=== PATIENT | female | born 1985 | race Caucasian/White ===

== ENCOUNTER 2018-03-07 17:08 | Emergency (ER) | payer OTHER, SELFPAY ==
[2018-03-07 18:51] LABS: Urine Blood NEGATIVE (NEG); Urine Glucose NEGATIVE (NEG); Urine Protein NEGATIVE (NEG); Urine Specific Gravity 1.025 (1.005-1.030)
[2018-03-07 18:54] LABS: Urine Bacteria <20 /HPF (<20); Urine RBC <5 /HPF (NONE SEEN)
[2018-03-07 18:55] LABS: Urine Amorphous Sediment 2+ /HPF (NONE SEEN); Urine Culture Reflex Order NOT NEEDED
--- NOTE | 2018-03-07 19:28 | ER ---
Nurse's Notes [facility] Name: Lilliana Escobedo Age: 32 yrs Sex: Female : 1985 Arrival Date: 03/07/2018 Time: 17:17 Bed 14 Private MD: None, None Diagnosis: Headache Presentation: 03/07 17:47 Presenting complaint: Patient states: unusual tiredness for the last couple of weeks, tl3 no energy, headache started three ot four days ago, behind both eyes, photophobic at times, pain so intense it makes her vomit. Transition of care: patient was not received from another setting of care. Onset of symptoms was March 03, 2018 at 15:00. Risk Assessment: Do you want to hurt yourself or someone else? Patient reports no desire to harm self or others. Initial Sepsis Screen: Does the patient meet any 2 criteria? No. Patient's initial sepsis screen is negative. Does the patient have a suspected source of infection? No. Patient's initial sepsis screen is negative. Care prior to arrival: None. 17:47 Method Of Arrival: Ambulatory tl3 17:47 Acuity: SELWYN 3 tl3 Triage Assessment: 17:50 Headache History: The patient has had previous headaches and this one is similar to tl3 previous episodes. General: Appears uncomfortable, well groomed, well developed, well nourished, Behavior is calm, cooperative, appropriate for age. Pain: Pain currently is 4 out of 10 on a pain scale. Pain: Pain began 2-3 days ago. Also complains of nausea, vomiting. Neuro: Level of Consciousness is awake, alert, obeys commands, Oriented to person, place, time, situation, Appropriate for age. 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 - Social history:: Smoking status: Patient uses tobacco products, quit about a week and a half ago. - Ebola Screening: : No symptoms or risks identified at this time. Screenin:37 Abuse screen: Denies threats or abuse. Nutritional screening: No deficits noted. em Tuberculosis screening: No symptoms or risk factors identified. Fall Risk None identified. Assessment: 18:24 General: Appears in no apparent distress. uncomfortable, Behavior is calm, cooperative, em Reports headache and nausea for 3 days, denies fever, hx of headaches. Pain: Complains of pain in head Pain currently is 4 out of 10 on a pain scale. Is intermittent. Neuro: Level of Consciousness is awake, alert, obeys commands, Oriented to person, place, time, situation, Moves all extremities. Gait is steady, Speech is normal, Facial symmetry appears normal, Reports headache photophobia weakness. Cardiovascular: Capillary refill < 3 seconds Patient's skin is warm and dry. Respiratory: Airway is patent Respiratory effort is even, unlabored, Respiratory pattern is regular, symmetrical. GI: Abdomen is round non-distended, Reports nausea, vomiting. : Urine is cloudy. EENT: No signs and/or symptoms were reported regarding the EENT system. Derm: Skin is intact, Skin is pink, warm \T\ dry. Musculoskeletal: Range of motion: intact in all extremities. 18:30 General: The previous assessment is accurate, call light remains within reach. . ss 19:10 Reassessment: Report received from ISABELLA Chambers. bs1 19:34 Reassessment: Patient appears in no apparent distress at this time. Patient and/or bs1 family updated on plan of care and expected duration. Pain level reassessed. Patient is alert, oriented x 3, equal unlabored respirations, skin warm/dry/pink. Urine micro negative. Instructed patient to follow up with PCP Patient denies pain at this time. Patient states symptoms have improved. Vital Signs: 17:50 BP 133 / 66; Pulse 73; Resp 18; Temp 98.3; Pulse Ox 98% ; Weight 122.47 kg; Height 5 tl3 ft. 10 in. (177.80 cm); 18:30 BP 133 / 73; Pulse 67; Resp 16; Pulse Ox 100% on R/A; bs1 19:30 BP 125 / 77; Pulse 69; Resp 15; Temp 98(O); Pulse Ox 99% on R/A; Pain 0/10; bs1 17:50 Body Mass Index 38.74 (122.47 kg, 177.80 cm) tl3 ED Course: 17:17 Patient arrived in ED. sb2 17:17 None, None is Private Physician. sb2 17:49 Triage completed. tl3 17:50 Arm band placed on left wrist. tl3 18:16 [facility]. pm1 18:16 Benja Zamorano MD is Attending Physician. pm1 18:17 Reyes Bass LVN is Primary Nurse. em 18:37 Patient has correct armband on for positive identification. Bed in low position. Call em light in reach. 18:37 Urine collected: clean catch specimen, cloudy. em 19:35 No provider procedures requiring assistance completed. Patient did not have IV access bs1 during this emergency room visit. Administered Medications: No medications were administered Outcome: 19:28 Discharge ordered by . pm1 19:35 Discharged to home ambulatory. bs1 19:35 Condition: stable 19:35 Discharge instructions given to patient, Instructed on discharge instructions, follow up and referral plans. Demonstrated understanding of instructions, follow-up care. 19:40 Patient left the ED. bs1 Signatures: Reyes Bass LVN LADIES UNDERWEAR OPERATOR em Roya Quiroz RN RN Jef Sarah, DELLA SENIOR CONTROLS ENGINEER pm1 Mariah Dai RN RN bs1 Cristina Kate sb2 Tamika Myers RN RN tl3
--- NOTE | 2018-03-07 19:29 | EDPHYS ---
Physician Documentation [facility] Name: Lilliana Escobedo Age: 32 yrs Sex: Female : 1985 Arrival Date: 03/07/2018 Time: 17:17 Bed 14 Private MD: None, None ED Physician Benja Zamorano HPI: 03/07 18:25 This 32 yrs old Female presents to ER via Ambulatory with complaints of pm1 Headache. 18:25 The patient complains of pain to the behind right eye and left eye. The patient pm1 describes the headache as aching, constant. Onset: The symptoms/episode began/occurred 3 day(s) ago. Associated signs and symptoms: Pertinent positives: nausea, Photophobia vomiting, Pertinent negatives: dizziness, fever, neck stiffness, rash, vision changes. Severity of symptoms: in the emergency department the pain has improved, a " 4" out of "10". Headache History: The patient has had previous headaches and this one is similar to previous episodes, and this one is less severe than previous episodes. The symptoms are alleviated by Darkened room, the symptoms are aggravated by lights, noise. The patient has experienced similar episodes in the past, multiple times. The patient has not recently seen a physician, and does not have an established primary care provider. this headache is not the worse that she has ever had. Current pain 4/10 and same presentation of location, behind both eyes, and sensitivity to noise and light. Patient typically goes into a dark room and sleeps the headache off with ibuprofen. 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 - Social history:: Smoking status: Patient uses tobacco products, quit about a week and a half ago. - Ebola Screening: : No symptoms or risks identified at this time. ROS: 18:25 Constitutional: Negative for fever, chills, and weight loss, Eyes: Negative for injury, pm1 pain, redness, and discharge, ENT: Negative for injury, pain, and discharge, Neck: Negative for injury, pain, and swelling, Cardiovascular: Negative for chest pain, palpitations, and edema, Respiratory: Negative for shortness of breath, cough, wheezing, and pleuritic chest pain, Abdomen/GI: Negative for abdominal pain, nausea, vomiting, diarrhea, and constipation, Back: Negative for injury and pain, : Negative for injury, bleeding, discharge, and swelling, MS/Extremity: Negative for injury and deformity, Skin: Negative for injury, rash, and discoloration. 18:25 Neuro: Positive for headache, Negative for dizziness, gait disturbance, numbness, tingling, weakness. Exam: 18:25 Constitutional: This is a well developed, well nourished patient who is awake, alert, pm1 and in no acute distress. Head/Face: Normocephalic, atraumatic. 18:25 Eyes: Pupils equal round and reactive to light, extra-ocular motions intact. Lids and lashes normal. Conjunctiva and sclera are non-icteric and not injected. Cornea within normal limits. Periorbital areas with no swelling, redness, or edema. ENT: Nares patent. No nasal discharge, no septal abnormalities noted. Tympanic membranes are normal and external auditory canals are clear. Oropharynx with no redness, swelling, or masses, exudates, or evidence of obstruction, uvula midline. Mucous membranes moist. Chest/axilla: Normal chest wall appearance and motion. Nontender with no deformity. No lesions are appreciated. Cardiovascular: Regular rate and rhythm with a normal S1 and S2. No gallops, murmurs, or rubs. Normal PMI, no JVD. No pulse deficits. Respiratory: Lungs have equal breath sounds bilaterally, clear to auscultation and percussion. No rales, rhonchi or wheezes noted. No increased work of breathing, no retractions or nasal flaring. Abdomen/GI: Soft, non-tender, with normal bowel sounds. No distension or tympany. No guarding or rebound. No evidence of tenderness throughout. Back: No spinal tenderness. No costovertebral tenderness. Full range of motion. Skin: Warm, dry with normal turgor. Normal color with no rashes, no lesions, and no evidence of cellulitis. MS/ Extremity: Pulses equal, no cyanosis. Neurovascular intact. Full, normal range of motion. 18:25 Neck: External neck: is normal, no acute changes, Trachea: is midline with no obvious abnormalities, no acute changes, ROM/movement: Meningeal signs: are not present, Kernig's sign is negative, Brudzinski's sign is negative, nuchal rigidity, is not appreciated. 18:25 Neuro: Orientation: is normal, Mentation: is normal, Cranial nerves: CN II- XII are normal as tested, Cerebellar function: normal finger to nose testing, Motor: moves all fours, strength is normal, strength is 5/5 in all extremities, Sensation: is normal, no obvious gross deficits. Vital Signs: 17:50 BP 133 / 66; Pulse 73; Resp 18; Temp 98.3; Pulse Ox 98% ; Weight 122.47 kg; Height 5 tl3 ft. 10 in. (177.80 cm); 18:30 BP 133 / 73; Pulse 67; Resp 16; Pulse Ox 100% on R/A; bs1 19:30 BP 125 / 77; Pulse 69; Resp 15; Temp 98(O); Pulse Ox 99% on R/A; Pain 0/10; bs1 17:50 Body Mass Index 38.74 (122.47 kg, 177.80 cm) tl3 MDM: 18:17 Patient medically screened. pm1 18:29 Data reviewed: vital signs. Data interpreted: Pulse oximetry: on room air is 98 %. pm1 Interpretation: normal. 18:29 Differential diagnosis: cluster headache, cerebral vascular accident, intracerebral pm1 hemorrhage, migraine, tension headache. 18:54 ED course: Informed patient positive urine test. Patient believes she might pm1 possibly 1 month . Patient without abdominal pain, vaginal discharge, burning with urination. 19:27 Counseling: I had a detailed discussion with the patient and/or guardian regarding: the pm1 historical points, exam findings, and any diagnostic results supporting the discharge/admit diagnosis, lab results, the need for outpatient follow up, to return to the emergency department if symptoms worsen or persist or if there are any questions or concerns that arise at home. 03/07 18:34 Order name: Urine Microscopic Only; Complete Time: 19:15 pm1 03/07 18:46 Order name: Urine Dipstick--Ancillary (enter results); Complete Time: 19:15 em1 03/07 18:23 Order name: Urine Dipstick-Ancillary (obtain specimen); Complete Time: 18:37 pm1 03/07 18:23 Order name: Urine Test (obtain specimen); Complete Time: 18:37 pm1 03/07 18:46 Order name: Urine --Ancillary (enter results); Complete Time: 19:15 em1 Administered Medications: No medications were administered Disposition: 03/08 13:14 Co-signature as Attending Physician, Benja Zamorano MD. Disposition: 03/07/18 19:28 Discharged to Home. Impression: Headache. - Condition is Stable. - Discharge Instructions: General Headache Without Cause. - Medication Reconciliation Form, Thank You Letter form. - Follow up: Emergency Department; When: As needed; Reason: Worsening of condition. Follow up: Private Physician; When: 2 - 3 days; Reason: Recheck today's complaints, Continuance of care, Re-evaluation by your physician. - Problem is new. - Symptoms have improved. Signatures: Dispatcher [employer] EDLA Jef Sarah, MANAGER SUPPLIER MANAGER SUPPLIER pm1 Benja Zamorano MD MD Mariah Dai, RN RN bs1 Tamika Myers RN RN tl3 Corrections: (The following items were deleted from the chart) 03/07 18:40 18:24 Head Brain Wo Cont+CT.RAD.BRZ ordered. [facility] EDLA 19:40 19:28 03/07/2018 19:28 Discharged to Home. Impression: Headache. Condition is Stable. bs1 Forms are Medication Reconciliation Form, Thank You Letter, Antibiotic Education, Prescription Opioid Use. Follow up: Emergency Department; When: As needed; Reason: Worsening of condition. Follow up: Private Physician; When: 2 - 3 days; Reason: Recheck today's complaints, Continuance of care, Re-evaluation by your physician. Problem is new. Symptoms have improved. pm1
[2018-03-07 19:56] VITALS: BP 125/77; TEMP 98; O2SAT 99
== END 2018-03-07 19:40 | disposition home or self-care (01) ==
LOC: ER 17:08
DX: R51 Headache (principal); Z88.0 Allergy status to penicillin
CPT/HCPCS: 81003; 81015; 81025; 99283

== ENCOUNTER 2018-09-05 08:31 | Emergency (ER) | payer OTHER ==
--- OUTSIDE RECORDS SUMMARY | 2018-09-05 08:33 | XMS REPORT ---
:1985 [facility] Address [address] [place] [address] Dr. Nicholson [address] [place] [id number] Care Team Providers Name Role Phone Unavailable Unavailable Unavailable Problems This patient has no known problems. Allergies, Adverse Reactions, Alerts This patient has no known allergies or adverse reactions. Medications This patient has no known medications.
[2018-09-05 09:07] LABS: Urine Bacteria 20-50 /HPF (<20); Urine Culture Reflex Order REFLEXED
[2018-09-05 09:07] LABS: Urine Blood 2+ (NEG); Urine Glucose NEGATIVE (NEG); Urine Protein 1+ (NEG); Urine pH 6.5 (5.0-7.0)
[2018-09-05 09:08] LABS: Urine Mucus 1+ /HPF (NONE SEEN)
[2018-09-05] MEDS ORDERED: FENTANYL CITR 100 MCG/2 ML ONE (09:14)
[2018-09-05] MEDS ORDERED: NA CHLORIDE 0.9% 1,000 ML ONE (09:14)
[2018-09-05 09:18] LABS: Absolute Lymphocytes (CBC) 2.1 K/uL (0.7-4.9); Absolute Monocytes 0.7 K/uL (0.1-1.3); Absolute Neutrophil 12.6 K/uL (1.8-8.0); Basophils % 0.5 % (0-1.3); Eosinophils % 0.7 % (0-4.4); Hematocrit 35.5 % (36.0-45.0); Lymphocytes % 13.5 % (15.3-44.8); MCH 30.3 pg (27.0-35.0); MPV 9.8 fL (7.6-11.3); Monocytes % 4.4 % (3.3-12.3); RBC Red Blood Cell Count 4.08 M/uL (3.86-4.86)
[2018-09-05 09:30] LABS: BUN Blood Urea Nitrogen 4 mg/dL (7-18); Bicarbonate 23 mmol/L (21-32); Glucose Level 97 mg/dL (74-106); Potassium 3.4 mmol/L (3.5-5.1); Sodium Level 138 mmol/L (136-145)
--- NOTE | 2018-09-05 09:52 | RAD REPORT ---
EXAM DESCRIPTION: US - Renal Ultrasound-Limited - 09/05/2018 9:39 am CLINICAL HISTORY: Left flank pain COMPARISON: 2014 CT FINDINGS: Left kidney measures 14 centimeters with a normal echotexture. Mild left hydronephrosis. 2 .5 centimeter cyst is present. Additional 1.6 centimeters cyst. No gross abnormality of bladder is noted. IMPRESSION: Mild left hydronephrosis
[2018-09-05] MEDS ORDERED: CEFTRIAXONE/SWI 1gm 1 GM/10 ML SYR ONE (09:53)
--- NOTE | 2018-09-05 10:08 | ER ---
Nurse's Notes [facility] Name: Lilliana Escobedo Age: 33 yrs Sex: Female : 1985 Arrival Date: 09/05/2018 Time: 08:32 Bed 7 Private MD: None, None Diagnosis: Acute tubulo-interstitial nephritis Presentation: 09/05 08:39 Risk Assessment: Do you want to hurt yourself or someone else? Patient reports no hj desire to harm self or others. Initial Sepsis Screen: Does the patient meet any 2 criteria? No. Patient's initial sepsis screen is negative. Does the patient have a suspected source of infection? No. Patient's initial sepsis screen is negative. Care prior to arrival: None. 08:39 Presenting complaint: Patient states: i woke with pain on my L lower back, LMO- approx, hj 04/04/18; 32 weeks AOG; reports taking a bunch of Tums; denies painful urination, denies fever; reports nausea; pain is 10/10;. Transition of care: patient was not received from another setting of care. Onset of symptoms was September 05, 2018. 08:39 Method Of Arrival: Ambulatory 08:39 Acuity: SELWYN 3 hj Triage Assessment: 08:39 General: Appears in no apparent distress. uncomfortable, Behavior is cooperative, hj appropriate for age, anxious, crying. Pain: Complains of pain in back. EENT: No signs and/or symptoms were reported regarding the EENT system. Neuro: Level of Consciousness is awake, alert, obeys commands, Oriented to person, place, time, situation, Appropriate for age. Cardiovascular: Capillary refill < 3 seconds Patient's skin is warm and dry. Respiratory: Airway is patent Respiratory effort is even, unlabored, Respiratory pattern is regular, symmetrical. GI: No signs and/or symptoms were reported involving the gastrointestinal system. : No signs and/or symptoms were reported regarding the genitourinary system. Derm: No signs and/or symptoms reported regarding the dermatologic system. Musculoskeletal: No signs and/or symptoms reported regarding the musculoskeletal system. DISTRICT CAPTAIN: 08:39 LMP 04/04/2018 Historical: - Allergies: 08:38 PENICILLINS; hj - Home Meds: 08:38 None [Active]; hj - PSHx: 08:38 Tonsillectomy; Adenoids; Pacreas stent; Cholecystectomy; hj - Immunization history:: Adult Immunizations up to date. - Social history:: Smoking status: Patient/guardian denies using tobacco, Patient/guardian denies using alcohol. - Ebola Screening: : Patient negative for fever greater than or equal to 101.5 degrees Fahrenheit, and additional compatible Ebola Virus Disease symptoms Patient denies exposure to infectious person Patient denies travel to an Ebola-affected area in the 21 days before illness onset. Screenin:39 Abuse screen: Denies threats or abuse. Denies injuries from another. Nutritional hj screening: No deficits noted. Tuberculosis screening: No symptoms or risk factors identified. Fall Risk None identified. Assessment: 08:39 Reassessment: see triage for assessment;. hj 09:30 Reassessment: US tech in room;. hj 09:40 Reassessment: Patient and/or family updated on plan of care and expected duration. Pain hj level reassessed. Patient is alert, oriented x 3, equal unlabored respirations, skin warm/dry/pink. complaining pain is getting worse; MD notified with orders; medicated with fentanyl 50 mcg IV;. 10:10 Reassessment: pt wheeled to L\T\D;. hj 10:39 Reassessment: back to room from \T\D; complaints of pain 06/30; MD notified with orders;.hj 10:48 Reassessment: awaiting EMS;. hj 11:10 Reassessment: Patient appears in no apparent distress at this time. No changes from aj1 previously documented assessment. Patient and/or family updated on plan of care and expected duration. Pain level reassessed. Patient is alert, oriented x 3, equal unlabored respirations, skin warm/dry/pink. Patient states that the morphine took off the edge of her pain, but she is still hurting and would like something else for pain before she leaves in the ambulance. Notified Dr. Zamorano. Order received. Vital Signs: 08:38 BP 113 / 92; Pulse 102; Resp 18; Temp 98.9(TE); Pulse Ox 100% ; Weight 122.4 kg; Height hj 5 ft. 10 in. (177.80 cm); 09:59 BP 129 / 74; Pulse 99; Resp 18; Pulse Ox 100% on R/A; hj 10:09 BP 140 / 86; Pulse 95; Resp 18; Pulse Ox 100% on R/A; hj 11:11 BP 132 / 79; Pulse 104; Resp 20; Pulse Ox 98% on R/A; aj1 08:38 Body Mass Index 38.72 (122.40 kg, 177.80 cm) ED Course: 08:32 Patient arrived in ED. sb2 08:32 None, None is Private Physician. sb2 08:35 Damian Meyers PA is PHCP. cp 08:35 Benja Zamorano MD is Attending Physician. cp 08:36 Jaden Vega, CESAR is Primary Nurse. hj 08:39 Arm band placed on. hj 08:39 Patient has correct armband on for positive identification. Placed in gown. Bed in low hj position. Call light in reach. Side rails up X 1. 08:42 Benja Zamorano MD is Attending Physician. gs 08:49 Triage completed. hj 08:53 Urine collected: clean catch specimen, cloudy. dh3 09:00 Initial lab(s) drawn, by me, sent to lab. Inserted saline lock: 22 gauge in right hj forearm, using aseptic technique. Blood collected. 09:39 Ultrasound completed. Patient tolerated well. sg3 09:45 First set of blood cultures drawn by me. hj 10:00 Second set of blood cultures drawn by me. hj 10:37 \[id number] transfer initiated with Ashley at the [facility] transfer [facility]/ \[id number] fina Alvarenga with Dr. Zamorano for patient transfer consultation/ \[id number] administrative approval given by Ashley Powers ; pt going to L\T\D triage/ report to be called to [phone]. 11:12 No provider procedures requiring assistance completed. Patient transferred, IV remains aj1 in place. Administered Medications: 09:00 Drug: fentaNYL (PF) 25 mcg Route: IVP; Site: right forearm; hj 09:30 Follow up: Response: Pain is unchanged, physician notified hj 09:00 Drug: NS 0.9% 1000 ml Route: IV; Rate: 1 bolus; Site: right forearm; hj 09:41 Drug: fentaNYL (PF) 50 mcg Route: IVP; Site: right forearm; hj 10:08 Follow up: Response: Pain is decreased hj 09:58 Drug: Rocephin - (cefTRIAXone) 1 grams Route: IVPB; Infused Over: 30 mins; Site: right hj forearm; 10:40 Drug: morphine 4 mg Route: IVP; Site: right forearm; hj 10:46 Follow up: Response: No adverse reaction; Pain is decreased hj 10:40 Drug: Zofran 4 mg Route: IVP; Site: right forearm; hj 10:46 Follow up: Response: No adverse reaction hj 11:10 Drug: morphine 4 mg Route: IVP; Site: right antecubital; aj1 11:12 Follow up: Response: No adverse reaction aj1 Outcome: 10:07 ER care complete, transfer ordered by . 11:12 Transferred by ground EMS aj1 11:12 Condition: stable 11:12 Discharge instructions given to patient, Instructed on the need for transfer, Demonstrated understanding of instructions. 11:13 Patient left the ED. aj1 Signatures: Saundra Mace RN RN aj1 Jaden Vega RN RN Damian Meyers PA PA cp Herrera, Deanna 3 Benja Zamorano MD MD gs Godinez, Sarah Cristina Pardees Elizabeth eb Corrections: (The following items were deleted from the chart) 10:00 08:38 122.4 kg; Height 5 ft. 10 in.; BMI: 38.7; [facility]
--- NOTE | 2018-09-05 10:09 | EDPHYS ---
Physician Documentation [facility] Name: Lilliana Escobedo Age: 33 yrs Sex: Female : 1985 Arrival Date: 09/05/2018 Time: 08:32 Bed 7 Private MD: None, None ED Physician Benja Zamorano HPI: 09/05 10:04 This 33 yrs old Female presents to ER via Ambulatory with complaints of Low gs Back Pain. 10:04 The patient presents with pain that is acute. The symptoms are located in the left low gs back. The pain does not radiate. The problem was sustained without known cause. Onset: The symptoms/episode began/occurred acutely, this morning. Modifying factors: The patient symptoms are alleviated by nothing, the patient symptoms are aggravated by any movement. Associated signs and symptoms: Pertinent positives: nausea, Pertinent negatives: abdominal pain, chest pain. Severity of symptoms: At their worst the symptoms were severe, in the emergency department the symptoms are unchanged. The patient has experienced similar episodes in the past, a few times, and the symptoms today are exactly the same, to when the patient was apparently diagnosed with kidney stone. 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 - Social history:: Smoking status: Patient/guardian denies using tobacco, Patient/guardian denies using alcohol. - Ebola Screening: : Patient negative for fever greater than or equal to 101.5 degrees Fahrenheit, and additional compatible Ebola Virus Disease symptoms Patient denies exposure to infectious person Patient denies travel to an Ebola-affected area in the 21 days before illness onset. ROS: 10:04 All other systems are negative. gs Exam: 10:04 Head/Face: Normocephalic, atraumatic. Eyes: Pupils equal round and reactive to light, gs extra-ocular motions intact. Lids and lashes normal. Conjunctiva and sclera are non-icteric and not injected. Cornea within normal limits. Periorbital areas with no swelling, redness, or edema. ENT: Nares patent. No nasal discharge, no septal abnormalities noted. Tympanic membranes are normal and external auditory canals are clear. Oropharynx with no redness, swelling, or masses, exudates, or evidence of obstruction, uvula midline. Mucous membranes moist. Neck: Trachea midline, no thyromegaly or masses palpated, and no cervical lymphadenopathy. Supple, full range of motion without nuchal rigidity, or vertebral point tenderness. No Meningismus. Chest/axilla: Normal chest wall appearance and motion. Nontender with no deformity. No lesions are appreciated. Cardiovascular: Regular rate and rhythm with a normal S1 and S2. No gallops, murmurs, or rubs. Normal PMI, no JVD. No pulse deficits. Respiratory: Lungs have equal breath sounds bilaterally, clear to auscultation and percussion. No rales, rhonchi or wheezes noted. No increased work of breathing, no retractions or nasal flaring. 10:04 Skin: Warm, dry with normal turgor. Normal color with no rashes, no lesions, and no evidence of cellulitis. MS/ Extremity: Pulses equal, no cyanosis. Neurovascular intact. Full, normal range of motion. Neuro: Awake and alert, GCS 15, oriented to person, place, time, and situation. Cranial nerves II-XII grossly intact. Motor strength 5/5 in all extremities. Sensory grossly intact. Cerebellar exam normal. Normal gait. 10:04 Constitutional: The patient appears alert, awake, uncomfortable. 10:04 Abdomen/GI: Inspection: gravid appearance, is noted, Palpation: nontender. 10:04 Back: CVA tenderness, that is moderate, is noted on the left. Vital Signs: 08:38 BP 113 / 92; Pulse 102; Resp 18; Temp 98.9(TE); Pulse Ox 100% ; Weight 122.4 kg; Height 5 ft. 10 in. (177.80 cm); 09:59 BP 129 / 74; Pulse 99; Resp 18; Pulse Ox 100% on R/A; hj 10:09 BP 140 / 86; Pulse 95; Resp 18; Pulse Ox 100% on R/A; hj 11:11 BP 132 / 79; Pulse 104; Resp 20; Pulse Ox 98% on R/A; aj1 08:38 Body Mass Index 38.72 (122.40 kg, 177.80 cm) MDM: 08:35 Patient medically screened. cp 10:04 Differential diagnosis: UTI, stone,comp . Data reviewed: vital signs, nurses gs notes. Counseling: I had a detailed discussion with the patient and/or guardian regarding: the historical points, exam findings, and any diagnostic results supporting the discharge/admit diagnosis, lab results, radiology results, the need to transfer to another facility. Response to treatment: the patient's symptoms have markedly improved after treatment. 09/05 08:42 Order name: Urine Microscopic Only 09/05 08:53 Order name: Urine Dipstick--Ancillary (enter results) 09/05 08:53 Order name: Urine --Ancillary (enter results) 09/05 08:54 Order name: CBC with Diff 09/05 08:54 Order name: Basic Metabolic Panel 09/05 09:07 Order name: Urine --Ancillary; Complete Time: 09:40 EDMS 09/05 08:54 Order name: US Rp Exam Limited 09/05 09:07 Order name: Urine Dipstick-Ancillary; Complete Time: 09:40 EDMS 09/05 09:08 Order name: Urine Microscopic Only; Complete Time: 09:40 EDMS 09/05 09:21 Order name: CBC with Automated Diff; Complete Time: 09:40 EDMS 09/05 09:30 Order name: Basic Metabolic Panel; Complete Time: 09:40 EDMS 09/05 09:41 Order name: Blood Culture* 09/05 09:52 Order name: US; Complete Time: 09:57 EDMS 09/05 08:42 Order name: Urine Test (obtain specimen); Complete Time: 08:47 09/05 08:42 Order name: Urine Dipstick-Ancillary (obtain specimen); Complete Time: 08:47 Administered Medications: 09:00 Drug: fentaNYL (PF) 25 mcg Route: IVP; Site: right forearm; hj 09:30 Follow up: Response: Pain is unchanged, physician notified hj 09:00 Drug: NS 0.9% 1000 ml Route: IV; Rate: 1 bolus; Site: right forearm; hj 09:41 Drug: fentaNYL (PF) 50 mcg Route: IVP; Site: right forearm; hj 10:08 Follow up: Response: Pain is decreased hj 09:58 Drug: Rocephin - (cefTRIAXone) 1 grams Route: IVPB; Infused Over: 30 mins; Site: right hj forearm; 10:40 Drug: morphine 4 mg Route: IVP; Site: right forearm; hj 10:46 Follow up: Response: No adverse reaction; Pain is decreased hj 10:40 Drug: Zofran 4 mg Route: IVP; Site: right forearm; hj 10:46 Follow up: Response: No adverse reaction hj 11:10 Drug: morphine 4 mg Route: IVP; Site: right antecubital; aj1 11:12 Follow up: Response: No adverse reaction aj1 Disposition: 09/05/18 10:07 Transfer ordered to [facility]. Diagnosis is Acute tubulo-interstitial nephritis. - Reason for transfer: Higher level of care. - Accepting physician is dasha. - Condition is Stable. - Problem is new. - Symptoms have improved. Signatures: Dispatcher [employer] Saundra Ramos RN RN aj1 Jaden Vega RN RN hj Damian Meyers PA PA cp Starr, Gregory, MD MD Corrections: (The following items were deleted from the chart) 11:13 10:07 09/05/2018 10:07 Transfer ordered to [facility]. Diagnosis is Acute aj1 tubulo-interstitial nephritis. Reason for transfer: Higher level of care. Accepting physician is dasha. Condition is Stable. Problem is new. Symptoms have improved. gs
[2018-09-05] MEDS ORDERED: MORPHINE 4 MG/ML SYR ONE ×2 (10:51→11:13)
[2018-09-05] MEDS ORDERED: ONDANSETRON 4 MG/2 ML VIAL ONE (10:51)
[2018-09-05 11:20] VITALS: TEMP 98.9
[2018-09-05 11:24] VITALS: BP 132/79; O2SAT 98
== END 2018-09-05 11:13 | disposition short-term general hospital (02) ==
LOC: ER 08:31
DX: N10 Acute pyelonephritis (principal); Z88.0 Allergy status to penicillin
CPT/HCPCS: 36415; 76775; 80048; 81003; 81015; 81025; 85025; 87040; 87086; 87088; 99285; J0696; J2405; J3010; J7030

== ENCOUNTER 2018-09-07 04:36 | Emergency (ER) | payer OTHER ==
--- OUTSIDE RECORDS SUMMARY | 2018-09-07 04:38 | XMS REPORT ---
:1985 [facility] Address [address] [place] [address] Dr. Nicholson [address] [place] [id number] Care Team Providers Name Role Phone Unavailable Unavailable Unavailable Problems This patient has no known problems. Allergies, Adverse Reactions, Alerts This patient has no known allergies or adverse reactions. Medications This patient has no known medications.
[2018-09-07] MEDS ORDERED: ACETAMINOPHEN 325 MG TABLET ONE (05:14)
[2018-09-07] MEDS ORDERED: MORPHINE 4 MG/ML SYR ONE (05:15)
[2018-09-07] MEDS ORDERED: NA CHLORIDE 0.9% 500 ML ONE (05:16)
[2018-09-07] MEDS ORDERED: TAMSULOSIN 0.4 MG SR CAP ONE (05:16)
--- NOTE | 2018-09-07 05:51 | ER ---
Nurse's Notes [facility] Name: Lilliana Escobedo Age: 33 yrs Sex: Female : 1985 Arrival Date: 09/07/2018 Time: 04:37 Bed 13 Private MD: Diagnosis: Kidney stone Presentation: 09/07 04:48 Presenting complaint: Patient states: "I was here this past Thursday and was jd3 transferred to [facility] for a kidney stone or something like that. I am also 32 weeks . I was released and have not been able to get my prescriptions filled. I was told to go straight to the ER again if I had any more pain.". Transition of care: patient was not received from another setting of care. Onset of symptoms was September 07, 2018. Risk Assessment: Do you want to hurt yourself or someone else? Patient reports no desire to harm self or others. Initial Sepsis Screen: Does the patient meet any 2 criteria? No. Patient's initial sepsis screen is negative. Does the patient have a suspected source of infection? No. Patient's initial sepsis screen is negative. Care prior to arrival: None. 04:48 Method Of Arrival: Ambulatory jd3 04:48 Acuity: SELWYN 3 jd3 Triage Assessment: 04:45 General: Appears in no apparent distress. uncomfortable, Behavior is calm, cooperative, cc3 appropriate for age. Pain: Complains of pain in left mid back. 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 jd3 Historical: - Allergies: 04:52 PENICILLINS; jd3 - Home Meds: 04:52 Vitamin Oral [Active]; jd3 - PMHx: 04:52 Kidney stones; jd3 - PSHx: 04:52 Tonsillectomy; Adenoids; Pacreas stent; Cholecystectomy; jd3 - Immunization history:: Adult Immunizations up to date. - Social history:: Smoking status: Patient uses tobacco products, smokes about 4 cigarettes a day.. - Ebola Screening: : Patient negative for fever greater than or equal to 101.5 degrees Fahrenheit, and additional compatible Ebola Virus Disease symptoms. - Family history:: not pertinent. - Hospitalizations: : Patient was recently seen at [facility]. Screenin:53 Abuse screen: Denies threats or abuse. Nutritional screening: No deficits noted. jd3 Tuberculosis screening: No symptoms or risk factors identified. Fall Risk Ambulatory Aid- None/Bed Rest/Nurse Assist (0 pts). Gait- Normal/Bed Rest/Wheelchair (0 pts) Mental Status- Oriented to own ability (0 pts). Total Negro Fall Scale indicates No Risk (0-24 pts). Assessment: 04:45 General: Appears in no apparent distress. uncomfortable, Behavior is calm, cooperative, cc3 appropriate for age. 04:45 Pain: Complains of pain in left mid back. Neuro: Level of Consciousness is awake, cc3 alert, obeys commands, Oriented to person, place, time, situation, Appropriate for age. Cardiovascular: Denies chest pain. Respiratory: Airway is patent Respiratory effort is even, unlabored, Respiratory pattern is regular, symmetrical. GI: Abdomen is round. : No signs and/or symptoms were reported regarding the genitourinary system. EENT: No signs and/or symptoms were reported regarding the EENT system. Derm: No signs and/or symptoms reported regarding the dermatologic system. Musculoskeletal: Circulation, motion, and sensation intact. Range of motion: intact in all extremities. 05:20 Reassessment: Patient appears in no apparent distress at this time. Patient and/or cc3 family updated on plan of care and expected duration. Pain level reassessed. Patient is alert, oriented x 3, equal unlabored respirations, skin warm/dry/pink. 06:10 Reassessment: Patient appears in no apparent distress at this time. Patient and/or cc3 family updated on plan of care and expected duration. Pain level reassessed. Patient is alert, oriented x 3, equal unlabored respirations, skin warm/dry/pink. Dr. Herrera discharged the patient home, no prescription given. IV cannula removed and patient left ER vitally stable and ambulatory. Vital Signs: 04:52 BP 148 / 82; Pulse 102; Resp 18 S; Temp 98.2(O); Pulse Ox 99% on R/A; Weight 136.53 kg jd3 (R); Height 5 ft. 9 in. (175.26 cm) (R); Pain 10/10; 05:45 BP 119 / 64; Pulse 93; Resp 20 S; Pulse Ox 98% on R/A; Pain 2/10; cc3 04:52 Body Mass Index 44.45 (136.53 kg, 175.26 cm) jd3 ED Course: 04:37 Patient arrived in ED. ds1 04:43 Gennaro Herrera MD is Attending Physician. rn 04:45 Gladys Ward is Primary Nurse. cc3 04:50 Triage completed. jd3 04:53 Arm band placed on. jd3 04:54 Patient has correct armband on for positive identification. Bed in low position. Call jd3 light in reach. Side rails up X 1. 05:35 Missed attempt(s): 20 gauge in left antecubital area. Bleeding controlled, band aid oe applied, catheter tip intact. 05:36 Inserted saline lock: 22 gauge in left upper arm, using aseptic technique. oe 06:10 No provider procedures requiring assistance completed. IV discontinued, intact, cc3 bleeding controlled, No redness/swelling at site. Pressure dressing applied. Administered Medications: 05:10 Drug: Flomax 0.4 mg Route: PO; cc3 05:45 Follow up: Response: No adverse reaction cc3 05:10 Drug: Tylenol 650 mg Route: PO; cc3 05:45 Follow up: Response: No adverse reaction; Pain is decreased cc3 05:30 Drug: NS 0.9% 500 ml Route: IV; Rate: bolus; Site: left upper arm; cc3 06:10 Follow up: Response: No adverse reaction; IV Status: Completed infusion; IV Intake: cc3 500ml 05:35 Drug: morphine 4 mg Route: IVP; Site: left upper arm; cc3 05:45 Follow up: Response: No adverse reaction; Pain is decreased cc3 05:45 Drug: Zofran 4 mg Route: IVP; Site: left upper arm; cc3 06:00 Follow up: Response: No adverse reaction; Nausea is decreased cc3 Intake: 06:10 IV: 500ml; Total: 500ml. cc3 Outcome: 05:50 Discharge ordered by . rn 06:10 Discharged to home ambulatory. cc3 06:10 Condition: stable 06:10 Discharge instructions given to patient, Instructed on discharge instructions, follow up and referral plans. Demonstrated understanding of instructions, follow-up care. 06:16 Patient left the ED. cc3 Signatures: Jazmine Carver ds1 Gennaro Herrera MD MD rn Espinosa, Orlando oe Davies, Jonathon, RN RN jd3 Gladys Ward cc3 Corrections: (The following items were deleted from the chart) 05:55 05:45 BP 119 / 64; Pulse 93bpm; Resp 20bpm; Spontaneous; Pulse Ox 98% RA; cc3 cc3 06:48 04:45 General: Appears in no apparent distress. uncomfortable, Behavior is calm, cc3 cooperative, appropriate for age, cc3
--- NOTE | 2018-09-07 05:51 | EDPHYS ---
Physician Documentation [facility] Name: Lilliana Escobedo Age: 33 yrs Sex: Female : 1985 Arrival Date: 09/07/2018 Time: 04:37 Bed 13 Private MD: ED Physician Gennaro Herrera HPI: 09/07 05:07 This 33 yrs old Female presents to ER via Ambulatory with complaints of rn Kidney Pain, 32 WkS PREG. 05:07 The patient complains of pain in the left mid back. The pain does not radiate. Onset: rn The symptoms/episode began/occurred 3 day(s) ago. Modifying factors: The symptoms are alleviated by nothing. the symptoms are aggravated by nothing. Severity of pain: At its worst the pain was moderate in the emergency department the pain has improved. The patient has experienced similar episodes in the past. REports seen here [address] Zamorano, sent to [facility], discharged just tonight, but too late to get into pharmacy to get her pain meds, discharged with norco/flomax/zofran. Reports identical pain returned. TOld by [facility] likely passing kidney stone but allowing her to pass it because is 32 weeks . . 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 jd3 Historical: - Allergies: 04:52 PENICILLINS; jd3 - Home Meds: 04:52 Vitamin Oral [Active]; jd3 - PMHx: 04:52 Kidney stones; jd3 - PSHx: 04:52 Tonsillectomy; Adenoids; Pacreas stent; Cholecystectomy; jd3 - Immunization history:: Adult Immunizations up to date. - Social history:: Smoking status: Patient uses tobacco products, smokes about 4 cigarettes a day.. - Ebola Screening: : Patient negative for fever greater than or equal to 101.5 degrees Fahrenheit, and additional compatible Ebola Virus Disease symptoms. - Family history:: not pertinent. - Hospitalizations: : Patient was recently seen at [facility]. ROS: 05:07 Constitutional: Negative for fever, chills, and weight loss, Cardiovascular: Negative rn for chest pain, palpitations, and edema, Respiratory: Negative for shortness of breath, cough, wheezing, and pleuritic chest pain, Abdomen/GI: Negative for abdominal pain, diarrhea, and constipation, Back: + flank pain : Negative for injury, bleeding, discharge, and swelling, MS/Extremity: Negative for injury and deformity, Skin: Negative for injury, rash, and discoloration, Neuro: Negative for headache, weakness, numbness, tingling, and seizure. Exam: 05:07 Constitutional: This is a well developed, well nourished patient who is awake, alert, rn sitting upright appears to be in pain Abdomen/GI: soft, non-tender Back: No CVAT Vital Signs: 04:52 BP 148 / 82; Pulse 102; Resp 18 S; Temp 98.2(O); Pulse Ox 99% on R/A; Weight 136.53 kg jd3 (R); Height 5 ft. 9 in. (175.26 cm) (R); Pain 10/10; 05:45 BP 119 / 64; Pulse 93; Resp 20 S; Pulse Ox 98% on R/A; Pain 2/10; cc3 04:52 Body Mass Index 44.45 (136.53 kg, 175.26 cm) jd3 MDM: 04:43 Patient medically screened. rn 05:44 Differential diagnosis: nephrolithiasis. Data reviewed: vital signs, nurses notes, old rn medical records, and as a result, I will discharge patient. Counseling: I had a detailed discussion with the patient and/or guardian regarding: the historical points, exam findings, and any diagnostic results supporting the discharge/admit diagnosis, the need for outpatient follow up, to return to the emergency department if symptoms worsen or persist or if there are any questions or concerns that arise at home. Special discussion: I discussed with the patient/guardian in detail that at this point there is no indication for admission to the hospital. It is understood, however, that if the symptoms persist or worsen the patient needs to return immediately for re-evaluation. Based on the history and exam findings, there is no indication for further emergent testing or inpatient evaluation. I discussed with the patient/guardian the need to see the urologist for further evaluation of the symptoms. ED course: REports marked improvement in symptoms, will dc home as has prescriptions for macrobid/norco/flomax, and just seen at [facility] within 12 hours. . 09/07 04:56 Order name: IV Start; Complete Time: 05:38 rn Administered Medications: 05:10 Drug: Flomax 0.4 mg Route: PO; cc3 05:45 Follow up: Response: No adverse reaction cc3 05:10 Drug: Tylenol 650 mg Route: PO; cc3 05:45 Follow up: Response: No adverse reaction; Pain is decreased cc3 05:30 Drug: NS 0.9% 500 ml Route: IV; Rate: bolus; Site: left upper arm; cc3 06:10 Follow up: Response: No adverse reaction; IV Status: Completed infusion; IV Intake: cc3 500ml 05:35 Drug: morphine 4 mg Route: IVP; Site: left upper arm; cc3 05:45 Follow up: Response: No adverse reaction; Pain is decreased cc3 05:45 Drug: Zofran 4 mg Route: IVP; Site: left upper arm; cc3 06:00 Follow up: Response: No adverse reaction; Nausea is decreased cc3 Disposition: 09/07/18 05:50 Discharged to Home. Impression: Kidney stone. - Condition is Stable. - Discharge Instructions: Kidney Stones. - Medication Reconciliation Form, Thank You Letter, Antibiotic Education, Prescription Opioid Use form. - Follow up: Private Physician; When: As needed; Reason: Recheck today's complaints, Re-evaluation by your physician. - Problem is an ongoing problem. - Symptoms have improved. Signatures: Gennaro Herrera MD MD rn Davies, Jonathon, RN RN Gladys Christensen cc3 Corrections: (The following items were deleted from the chart) 06:16 05:50 09/07/2018 05:50 Discharged to Home. Impression: Kidney stone. Condition is cc3 Stable. Forms are Medication Reconciliation Form, Thank You Letter, Antibiotic Education, Prescription Opioid Use. Follow up: Private Physician; When: As needed; Reason: Recheck today's complaints, Re-evaluation by your physician. Problem is an ongoing problem. Symptoms have improved. rn
[2018-09-07] MEDS ORDERED: ONDANSETRON 4 MG/2 ML VIAL ONE (05:53)
[2018-09-07 06:21] VITALS: TEMP 98.2
[2018-09-07 06:23] VITALS: BP 119/64; O2SAT 98
== END 2018-09-07 06:16 | disposition home or self-care (01) ==
LOC: ER 04:36
DX: N20.0 Calculus of kidney (principal); O99.333 Smoking (tobacco) complicating pregnancy, third trimester; F17.210 Nicotine dependence, cigarettes, uncomplicated; Z88.0 Allergy status to penicillin; Z3A.32 32 weeks gestation of pregnancy
CPT/HCPCS: 96361; 96374; 96375; 99283; J2405

== ENCOUNTER 2021-11-16 07:44 | Emergency (ER) | payer OTHER, SELFPAY ==
--- OUTSIDE RECORDS SUMMARY | 2021-11-16 07:46 | XMS REPORT | Continuity of Care Document ---
:1985 Author Organization [facility] t Address [address] [place] [address] Care Team Providers Name Role Phone Rambo Attending Clinician Unavailable Tabitha Urena Attending Clinician Unavailable Physician, Primary or Family Admitting Clinician Unavailabl e Payers Payer Name Policy Type Policy Number Effective Date Expiration Date S ource Problems This patient has no known problems. Allergies, Adverse Reactions, Alerts Allergy Allergy Status Severity Reaction(s) Onset Inactive Treating Comm ents Source Name Type Date Date Clinician Penicill DA Active [facility] 2020-09 HC A ins 11-16 [place] [facility] DA Active [facility] 2020-09 HC A ins 10-25 [facility] Medications This patient has no known medications. Procedures This patient has no known procedures. Encounters Start End Encounter Admission Attending Care Care Encounter Source Date/Time Date/Time Type Type Clinicians Facility Department ID 2021-09-15 Inpatient EM Rambo KENNEDY BENAVIDES [id number] [facility] 08:38:00 Arturo 94 [facility] 2021-09-15 2021-09-15 Emergency EM KENNEDY Ricks JILL [id number] 14-20 [facility] 08:37:00 08:37:00 Arturo [id number] [facility] 2021-08-24 2021-08-24 Emergency EM KENNEDY Urena JILL [id number] [facility] 13:01:00 15:36:00 Sobia [id number] [facility] 2021-08-24 2021-08-24 Emergency EM KENNEDY Urena [id number] [facility] 13:01:00 15:36:00 Sobia 32 [facility] Results Test Description Test Time Test Comments Results Result [facility] e Comments - XR HAND 3 + V RT 2021-08-24 13:58:00 [facility] : 1985 Sex: F FAX: Stephen Restrepo [phone] [place]: St: PRE Name: MADAN EVERETT [facility] : 1985 Age/S: 36/F [address] [facility] Unit #: [id number] Loc: [address] Phys: Stephen Restrepo [address] Acct: [id number] Dis Date: Status: PRE ER PHONE #: [phone] Exam Date: 08/24/2021 1355 FAX #: [phone] Reason: fall, left knee and right hand pain EXAMS: CPT CODE: [id number] XR HAND 3 + V RT [id number] EXAMINATION: - XR HAND 3 + V RT. LOCATION: H39. HISTORY: fall, left knee and right hand pain. COMPARISON: None. TECHNIQUE: AP, lateral, and oblique views of the right hand were obtained. FINDINGS: No acute fracture or dislocation is identified. Soft tissue structures appear within normal limits. IMPRESSION: No acute osseous abnormality is identified. at 1350 Reported and signed by: Daniel Fajardo M.D. CC: Stephen FISHER Technologist: STACI Workman Trnscrd Date/Time/By: 08/24/2021 (2666) : By: [email or web address] PAGE 1 Signed Report FAX: Stephen Restrepo [phone] [place]: St: PRE Name: MADAN EVERETT [facility] : 1985 Age/S: 36/F [address] [facility] Unit #: [id number] Loc: [address] [place] [address] Phys: Stephen Restrepo [address] Acct: [id number] Dis Date: Status: PRE ER PHONE #: [phone] Exam Date: 08/24/2021 1355 FAX #: [phone] Reason: fall, left knee and right hand pain EXAMS: CPT CODE: [id number] XR HAND 3 + V RT [id number] <Continued> Orig Print D/T: S: 08/24/2021 (9060) PAGE 2 Signed Report - XR KNEE 3 V LT 2021-08-24 13:57:00 [facility] : 1985 Sex: F FAX: Stephen Restrepo [phone] [place]: St: PRE Name: MADAN EVERETT [facility] : 1985 Age/S: 36/F [address] [facility] Unit #: [id number] Loc: [address] Phys: Stephen Restrepo [address] Acct: [id number] Dis Date: Status: PRE ER PHONE #: [phone] Exam Date: 08/24/2021 1355 FAX #: [phone] Reason: fall, left knee and right hand pain EXAMS: CPT CODE: [id number] XR KNEE 3 V LT [id number] EXAMINATION: - XR KNEE 3 V LT. LOCATION: H39. HISTORY: fall, left knee and right hand pain. COMPARISON: None. TECHNIQUE: AP, lateral, and oblique views of the left knee were obtained. FINDINGS: No acute fracture or dislocation is identified. Femorotibial joint space narrowing is present. Soft tissue structures appear within normal limits. IMPRESSION: No acute osseous abnormality is identified. at 1357 Reported and signed by: Daniel Fajardo M.D. CC: Stephen FISHER Technologist: STACI Workman Trnscrd Date/Time/By: 08/24/2021 (6312) : By: [email or web address] PAGE 1 Signed Report FAX: Setphen Restrepo [phone] [place]: St: PRE Name: MADAN EVERETT [facility] : 1985 Age/S: 36/F [address] Unit #: [id number] Loc: E.ERS2 [place], [place] Phys: Stephen Restrepo [address] Acct: [id number] Dis Date: Status: PRE ER PHONE #: [phone] Exam Date: 08/24/2021 [facility]5 FAX #: [phone] Reason: fall, left knee and right hand pain EXAMS: CPT CODE: [id number] XR KNEE 3 V LT [id number] <Continued> Orig Print D/T: S: 08/24/2021 (1400) PAGE 2 Signed Report
[2021-11-16] MEDS ORDERED: ONDANSETRON 4 MG (ODT) TAB ONE (08:03)
[2021-11-16] MEDS ORDERED: HYDROCODONE/CHLORPHEN 5 ML/OSYR ONE (08:09)
[2021-11-16 09:26] LABS: SARS-COV-2 RT PCR NEGATIVE (NEGATIVE)
--- NOTE | 2021-11-16 09:49 | ER ---
Nurse's Notes [facility] Name: Lilliana Escobedo Age: 36 yrs Sex: Female : 1985 Arrival Date: 11/16/2021 Time: 07:47 Bed 12 Private MD: Diagnosis: Acute pharyngitis, unspecified;Acute serous otitis media, unspecified ear Presentation: 11/16 07:54 Chief complaint: Patient states: Covid exposure at work 2 days ago, Reports N/V/D, SOB, ph cough, nasal congestion, R ear pain, sore throat. Coronavirus screen: Vaccine status: Patient reports being unvaccinated. congestion, cough unrelated to allergies, diarrhea, fatigue, nausea, runny nose, shortness of breath, sore throat, vomiting. Ebola Screen: No symptoms or risks identified at this time. Initial Sepsis Screen: Does the patient meet any 2 criteria? No. Patient's initial sepsis screen is negative. Does the patient have a suspected source of infection? No. Patient's initial sepsis screen is negative. Risk Assessment: Do you want to hurt yourself or someone else? Patient reports no desire to harm self or others. Onset of symptoms was November 16, 2021. 07:54 Method Of Arrival: Ambulatory ph 07:54 Acuity: SELWYN 4 ph Triage Assessment: 08:20 General: Appears in no apparent distress. comfortable, well groomed, Behavior is calm, ph cooperative, appropriate for age. Pain: Complains of pain in R ear , throat. EENT: Reports decreased hearing in right ear nasal congestion pain in right ear when swallowing. Neuro: Level of Consciousness is awake, alert, obeys commands, Oriented to person, place, time, situation. Cardiovascular: Capillary refill < 3 seconds in bilateral fingers Patient's skin is warm and dry. Respiratory: Reports shortness of breath cough that is pain with cough Airway is patent Respiratory effort is even, unlabored, Respiratory pattern is regular, symmetrical. GI: Reports diarrhea, nausea, vomiting. Derm: Skin is intact, is healthy with good turgor, Skin is pink, warm \\T\\ dry. Musculoskeletal: Circulation, motion, and sensation intact. Range of motion: intact in all extremities. 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 - Social history:: Smoking status: Patient reports the use of cigarette tobacco products, smokes one-half pack cigarettes per day. Screenin:25 Abuse screen: Denies threats or abuse. Denies injuries from another. Nutritional ph screening: No deficits noted. Tuberculosis screening: No symptoms or risk factors identified. Fall Risk None identified. Assessment: 08:05 Reassessment: Persistent cough noted until the point vomiting, states that she is ph nauseous "the cough is making me gag and throw up though." ERP notified, verbal order received for Tussionex, see NOV. 09:16 Reassessment: Patient appears in no apparent distress at this time. Patient and/or ph family updated on plan of care and expected duration. Pain level reassessed. Patient is alert, oriented x 3, equal unlabored respirations, skin warm/dry/pink. Pt reports that cough and N/V have improved, awaiting swab results. Vital Signs: 07:54 BP 135 / 77; Pulse 87; Resp 20; Temp 98.8; Pulse Ox 100% on R/A; Weight 107.05 kg; ph Height 5 ft. 9 in. (175.26 cm); 09:57 BP 127 / 73; Pulse 81; Resp 16; Pulse Ox 99% on R/A; ab2 07:54 Body Mass Index 34.85 (107.05 kg, 175.26 cm) ph ED Course: 07:47 Patient arrived in ED. rg4 07:51 Meng Cuenca PA is PHCP. jmm 07:51 Kevin Fang DO is Attending Physician. jmm 07:54 Kavya Kim, RN is Primary Nurse. ph 07:56 Triage completed. ph 07:56 Arm band placed on. ph 08:20 COVID-19/FLU A+B (Document "Date of Onset" if Symptomatic) Sent. ph 08:20 Strep Sent. ph 08:20 COVID-19/FLU A+B Sent. ph 08:25 Patient has correct armband on for positive identification. Call light in reach. Door ph closed. Noise minimized. 09:58 No provider procedures requiring assistance completed. Patient did not have IV access ab2 during this emergency room visit. Administered Medications: 08:05 Drug: Zofran (Ondansetron) 4 mg Route: PO; ph 09:16 Follow up: Response: No adverse reaction ph 08:10 Drug: Tussionex Pennkinetic ER (chlorpheniramine-hydrocodone) Suspension 5 ml Route: PO;ph 09:16 Follow up: Response: No adverse reaction ph Outcome: 09:48 Discharge ordered by MD. caldwell 09:58 Discharged to home ambulatory. ab2 09:58 Condition: good 09:58 Discharge instructions given to patient, Instructed on discharge instructions, follow up and referral plans. medication usage, Demonstrated understanding of instructions, follow-up care, medications, Prescriptions given X 2. 09:58 Patient left the ED. ab2 Signatures: Meng Cuenca PA PA jmm Hall, Patricia, RN RN ph Bairon, [employer]4 Wganer Stokes ab2
--- NOTE | 2021-11-16 09:49 | EDPHYS ---
Physician Documentation [facility] Name: Lilliana Escobedo Age: 36 yrs Sex: Female : 1985 Arrival Date: 11/16/2021 Time: 07:47 Bed 12 Private MD: ED Physician Kevin Fang HPI: 11/16 07:53 This 36 yrs old Female presents to ER via Ambulatory with complaints of Vomiting, Ear jmm Pain, Cough. 07:53 Onset: The symptoms/episode began/occurred gradually, 1 day(s) ago. The symptoms are jmm aggravated by nothing. The symptoms are alleviated by nothing. This is a 36-year-old female that presents emerged part with complaints of cough, congestion, sore throat, right ear pain beginning pulse 1 day ago. Patient is concerned due to Covid exposure. States that she had a multiple episodes of vomiting after coughing fit.. 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 - Social history:: Smoking status: Patient reports the use of cigarette tobacco products, smokes one-half pack cigarettes per day. ROS: 07:53 Constitutional: Positive for body aches, chills. jmm 07:53 Respiratory: Positive for cough. 07:53 Abdomen/GI: Positive for vomiting. 07:53 All other systems are negative. Exam: 07:53 Constitutional: This is a well developed, well nourished patient who is awake, alert, jmm and in no acute distress. Head/Face: atraumatic. Eyes: EOMI, no conjunctival erythema appreciated 07:53 Neck: Trachea midline, Supple Chest/axilla: Normal chest wall appearance and motion. Cardiovascular: Regular rate and rhythm. No edema appreciated Respiratory: Normal respirations, no respiratory distress appreciated Abdomen/GI: Non distended, soft Back: Normal ROM Skin: General appearance color normal MS/ Extremity: Moves all extremities, no obvious deformities appreciated, no edema noted to the lower extremities Neuro: Awake and alert Psych: Behavior is normal, Mood is normal, Patient is cooperative and pleasant 07:53 ENT: TM's: erythema, that is moderate, bilaterally, Posterior pharynx: erythema, that is moderate. Vital Signs: 07:54 BP 135 / 77; Pulse 87; Resp 20; Temp 98.8; Pulse Ox 100% on R/A; Weight 107.05 kg; ph Height 5 ft. 9 in. (175.26 cm); 09:57 BP 127 / 73; Pulse 81; Resp 16; Pulse Ox 99% on R/A; ab2 07:54 Body Mass Index 34.85 (107.05 kg, 175.26 cm) ph MDM: 07:53 Patient medically screened. [facility] 09:47 Data reviewed: vital signs, nurses notes. Counseling: I had a detailed discussion with [facility] the patient and/or guardian regarding: the historical points, exam findings, and any diagnostic results supporting the discharge/admit diagnosis, the need for outpatient follow up, to return to the emergency department if symptoms worsen or persist or if there are any questions or concerns that arise at home. ED course: Patient is alert nontoxic in appearance in the ED. No signs of respiratory distress. Physical exam findings consistent with otitis media and acute pharyngitis. Swabs are negative. Patient advised follow-up PCP and otherwise given strict return precautions. Patient understood agrees plan of care.. 11/16 07:58 Order name: COVID-19/FLU A+B (Document "Date of Onset" if Symptomatic) [facility] 11/16 07:58 Order name: Strep; Complete Time: 09:42 [facility] 11/16 07:58 Order name: COVID-19/FLU A+B; Complete Time: 09:42 [facility] 11/16 09:14 Order name: Throat Culture [facility] Administered Medications: 08:05 Drug: Zofran (Ondansetron) 4 mg Route: PO; ph 09:16 Follow up: Response: No adverse reaction ph 08:10 Drug: Tussionex Pennkinetic ER (chlorpheniramine-hydrocodone) Suspension 5 ml Route: PO;ph 09:16 Follow up: Response: No adverse reaction ph Disposition: 17:44 Co-signature as Attending Physician, Kevin Fang DO I agree with the assessment and ms3 plan of care. Attestation: The patient's history, exam findings, diagnostics, and a summary of any interventions or procedures was reviewed in detail with Meng Mickail PA. Disposition Summary: 11/16/21 09:48 Discharge Ordered Location: Home [facility] Condition: Stable jm Diagnosis - Acute pharyngitis, unspecified jmm - Acute serous otitis media, unspecified ear jmm Followup: jm - With: Private Physician - When: 2 - 3 days - Reason: Recheck today's complaints, Continuance of care, Re-evaluation by your physician Discharge Instructions: - Discharge Summary Sheet jmm - Otitis Media, Adult jmm - Pharyngitis jmm - Sore Throat [facility] Forms: - Medication Reconciliation Form [facility] - Thank You Letter [facility] - Antibiotic Education jmm - Prescription Opioid Use [facility] - Work release form sv1 Prescriptions: - promethazine-DM - take 5 milliliter by ORAL route every 4-6 hours; 120 milliliter; Refills: 0, [facility] Product Selection Permitted - Zithromax Z-Moreno 250 mg Oral Tablet - take 1 tablet by ORAL route as directed for 5 days Day 1 - take two (2) tablets [facility] one time. Day 2, 3, 4 , 5 take one (1) tablet once daily.; 6 tablet; Refills: 0, Product Selection Permitted Signatures: Dispatcher [employer] EDMeng Lindsey PA PA [facility] Kavya Kim, RN RN Kevin Barnhart DO DO ms3
[2021-11-16 10:04] VITALS: TEMP 98.8
[2021-11-16 10:05] VITALS: BP 127/73; O2SAT 99
== END 2021-11-16 09:58 | disposition home or self-care (01) ==
LOC: ER 07:44
DX: H65.03 Acute serous otitis media, bilateral (principal); J02.9 Acute pharyngitis, unspecified; Z20.822 Contact with and (suspected) exposure to COVID-19; F17.210 Nicotine dependence, cigarettes, uncomplicated; Z88.0 Allergy status to penicillin
CPT/HCPCS: 0240U; 87070; 87081; 99283

== ENCOUNTER 2021-12-15 15:30 | Emergency (ER) | payer SELFPAY ==
--- OUTSIDE RECORDS SUMMARY | 2021-12-15 15:33 | XMS REPORT | Continuity of Care Document ---
:[address] [facility] t Address [address] [place] [address] Care Team Providers Name Role Phone Rambo [...] Clinician Penicill DA Active [facility] 2020-09 A ins 11-16 [facility]icill DA Active [facility] 2020-09 A ins 10-25 [facility] 00:[facility]: d [facility] Medications This patient has no known medications. Procedures This patient has no known procedures. Encounters Start End Encounter Admission Attending Care Care Encounter Source Date/Time Date/Time Type Type Clinicians Facility Department ID 2021-09-15 Inpatient EM KENNEDY Ricks [facility] [id number] [facility] 08:38:00 Arturo 94 [facility] 2021-09-15 2021-09-15 Emergency EM KENNEDY Ricks JILL [id number] 14-20 [facility] 08:37:00 08:37:00 Arturo [id number] [facility] 2021-08-24 2021-08-24 Emergency EM KENNEDY Urena JILL [id number] [facility] 13:01:00 15:36:00 Sobia [id number] [facility] 2021-08-24 2021-08-24 Emergency EM KENNEDY Urena [id number] [facility] 13:01:00 15:36:00 Sobia 32 [facility] Results Test Description Test Time Test Comments Results Result [facility] Comments - XR HAND 3 + V RT 2021-08-24 13:58:00 [facility] : 1985 Sex: F FAX: Stephen Restrepo [phone] [place]: St: PRE Name: MADAN EVERETT [facility] : 1985 Age/S: 36/F [address] [facility] Unit #: [id number] Loc: [address] Phys: Stephen Restrepo [address] Acct: [id number] Dis Date: Status: PRE ER PHONE #: [phone] Exam Date: 08/24/2021 1355 FAX #: [phone] Reason: fall, left knee and right hand pain EXAMS: CPT CODE: [id number] XR HAND 3 + V RT [id number] EXAMINATION: - XR HAND 3 + V [...] FISHER Technologist: STACI Workman Trnscrd Date/Time/By: 08/24/2021 (6003) : By: [email or web address] PAGE 1 Signed Report FAX: Stephen Restrepo [phone] [place]: St: PRE Name: MADAN EVERETT [facility] : 1985 Age/S: 36/F [address] [facility] Unit #: [id number] Loc: [address] Phys: Stephen Restrepo [address] Acct: [id number] Dis Date: Status: PRE ER PHONE #: [phone] Exam Date: 08/24/2021 1355 FAX #: [phone] Reason: fall, left knee and right hand pain EXAMS: CPT CODE: [id number] XR HAND 3 + V RT [id number] <Continued> Orig Print D/T: S: 08/24/2021 (7408) PAGE 2 Signed Report - XR KNEE 3 V LT 2021-08-24 13:57:00 [facility] : 1985 Sex: F FAX: Stephen Restrepo [phone] [place]: St: PRE Name: MADAN EVERETT [facility] [place] : 1985 Age/S: 36/F [address] [facility] Unit #: [id number] Loc: [address] Phys: Stephen Restrepo [address] Acct: [id number] Dis Date: Status: PRE ER PHONE #: [phone] Exam Date: 08/24/2021 1355 FAX #: [phone] Reason: fall, left knee and right hand pain EXAMS: CPT CODE: [id number] XR KNEE 3 [place] LT [id number] EXAMINATION: - XR KNEE 3 V LT. [...] M.D. CC: Stephen FISHER Technologist: STACI Workman Trnokrd Date/Time/By: 08/24/2021 (3363) : By: [email or web address] PAGE 1 Signed Report FAX: Stephen Restrepo [phone] [place]: St: PRE Name: MADAN EVERETT [facility] : 1985 Age/S: 36/F [address] [facility] Unit #: [id number] Loc: [address] Phys: Stephen Restrepo [address] Acct: [id number] Dis Date: Status: PRE ER PHONE #: [phone] Exam Date: 08/24/2021 6725 FAX #: [phone] Reason: fall, left knee and right hand pain EXAMS: CPT CODE: [id number] XR KNEE 3 [place] [address] <Continued> Orig Print D/T: S: 08/24/2021 (1400) PAGE 2 Signed Report
[2021-12-15] MEDS ORDERED: METHYLPREDNISOLONE 125 MG INJ ONE (17:29)
[2021-12-15] MEDS ORDERED: levoFLOXacin 750 MG TAB ONE (17:30)
[2021-12-15] MEDS ORDERED: IPRATROPIUM BROM 0.5MG/2.5ML ONE ×2 (17:30→17:59)
[2021-12-15] MEDS ORDERED: ALBUTEROL 2.5 MG/3 ML NEB SOL ONE ×2 (17:30→17:59)
[2021-12-15] MEDS ORDERED: NA CHLORIDE 0.9% 1,000 ML ONE (17:31)
[2021-12-15] MEDS ORDERED: predniSONE 20 MG TAB ONE (17:31)
[2021-12-15 17:55] LABS: Absolute Lymphocytes (CBC) 2.7 K/uL (0.7-4.9); Hematocrit 41.8 % (36.0-45.0); Lymphocytes % 26.2 % (15.3-44.8); MPV 9.3 fL (7.6-11.3); RBC Red Blood Cell Count 4.47 M/uL (3.86-4.86)
--- NOTE | 2021-12-15 17:57 | RAD REPORT ---
EXAM DESCRIPTION: Ashu Guillermo (2 Views)12/15/2021 5:24 pm CLINICAL HISTORY: Cough COMPARISON: 2013 FINDINGS: The lungs appear clear of acute infiltrate. The heart is normal size IMPRESSION: No acute abnormalities displayed
[2021-12-15 18:09] LABS: ALT/SGPT 23 U/L (12-78); AST/SGOT 11 U/L (15-37); Albumin 3.5 g/dL (3.4-5.0); Alkaline Phosphatase 83 U/L (45-117); BUN Blood Urea Nitrogen 13 mg/dL (7-18); Bicarbonate 28 mmol/L (21-32); Bilirubin Total 0.2 mg/dL (0.2-1.0); Glucose Level 85 mg/dL (74-106); Potassium 3.7 mmol/L (3.5-5.1); Protein, Total 6.8 g/dL (6.4-8.2); Sodium Level 138 mmol/L (136-145)
--- NOTE | 2021-12-15 18:24 | ER ---
Nurse's Notes [facility] Name: Lilliana Escobedo Age: 36 yrs Sex: Female : 1985 Arrival Date: 12/15/2021 Time: 15:33 Bed 25 Private MD: Diagnosis: Bronchitis, not specified as acute or chronic;Tobacco abuse counseling;Tobacco use;Acute upper respiratory infection, unspecified;Headache Presentation: 12/15 16:03 Chief complaint: Patient states: "Yesterday, I had to leave work early due to having a ab2 bad headache. I still have a headache and I think my lungs are congested." Pt c/o SOB, cough, congestions and a headache. Coronavirus screen: Vaccine status: Patient reports being unvaccinated. Client denies travel out of the [place] in the last 14 days. congestion, cough unrelated to allergies, shortness of breath, Client presents with at least one sign or symptom that may indicate coronavirus-19. Standard/surgical mask placed on the client. Provider contacted for isolation considerations. Ebola Screen: Patient negative for fever greater than or equal to 101.5 degrees Fahrenheit, and additional compatible Ebola Virus Disease symptoms Patient denies exposure to infectious person. Patient denies travel to an Ebola-affected area in the 21 days before illness onset. No symptoms or risks identified at this time. Initial Sepsis Screen: Does the patient meet any 2 criteria? No. Patient's initial sepsis screen is negative. Does the patient have a suspected source of infection? No. Patient's initial sepsis screen is negative. Risk Assessment: Do you want to hurt yourself or someone else? Patient reports no desire to harm self or others. Onset of symptoms is unknown. 16:03 Method Of Arrival: Ambulatory ab2 16:51 Acuity: SELWYN 3 iw Triage Assessment: 16:09 General: Appears in no apparent distress. uncomfortable, Behavior is calm, cooperative, ab2 appropriate for age. Pain: Complains of pain in head Pain currently is 4 out of 10 on a pain scale. Neuro: Reports headache. Respiratory: Reports shortness of breath cough that is. Historical: - Allergies: 16:08 PENICILLINS; ab2 - PMHx: 16:08 Kidney stones; ab2 - PSHx: 16:08 Cholecystectomy; Tonsillectomy; ab2 - Immunization history:: Adult Immunizations up to date. - Social history:: Smoking status: Patient reports the use of cigarette tobacco products, smokes one-half pack cigarettes per day. Screenin:07 Abuse screen: Denies threats or abuse. Denies injuries from another. Nutritional iw screening: No deficits noted. Tuberculosis screening: No symptoms or risk factors identified. Vital Signs: 16:03 BP 109 / 73; Pulse 63; Resp 17; Temp 98.3(TE); Pulse Ox 100% on R/A; Weight 107.05 kg; ab2 Height 5 ft. 9 in. (175.26 cm); Pain 4/10; 16:03 Body Mass Index 34.85 (107.05 kg, 175.26 cm) ab2 ED Course: 15:33 Patient arrived in ED. mr 16:08 Triage completed. ab2 16:09 Arm band placed on right wrist. ab2 16:13 Damian Connor MD is Attending Physician. pranay 16:50 Damian Meyers PA is PHCP. kylie 16:50 Nusrat Jacobson, CESAR is Primary Nurse. iw 17:06 Initial lab(s) drawn, by me. Inserted saline lock: 22 gauge in left antecubital area, iw using aseptic technique. Blood collected. 17:25 Chest Pa And Lat (2 Views) XRAY In Process Unspecified. EDMS 18:24 Juan Stafford MD is Referral Physician. pranay Administered Medications: 17:43 Drug: SOLU-Medrol (methylPrednisoLONE) 125 mg Route: IVP; Site: left antecubital; iw 17:43 Drug: Albuterol - atroVENT (ipratropium) (3:1) (2.5 mg - 0.5 mg) 3 ml Route: Nebulizer; iw 17:43 Drug: NS 0.9% 1000 ml Route: IV; Rate: 1 bolus; Site: left antecubital; iw 17:43 Drug: predniSONE 40 mg Route: PO; iw 17:43 Drug: LevOfloxacin 750 mg Route: PO; iw Outcome: 18:24 Discharge ordered by . pranay 18:39 Patient left the ED. iw Signatures: Dispatcher [employer] EDMS Damian Connor MD MD cha Rivera, Mary mr Nusrat Jacobson RN RN iw Damian Meyers PA PA cp Bleininger, Alexis ab2 Corrections: (The following items were deleted from the chart) 18:39 16:03 Acuity: SELWYN 4 ab2 ab2
--- NOTE | 2021-12-15 18:24 | EDPHYS ---
Physician Documentation [facility] Name: Lilliana Escobedo Age: 36 yrs Sex: Female : 1985 Arrival Date: 12/15/2021 Time: 15:33 Bed 25 Private MD: ED Physician Damian Connor HPI: 12/15 16:43 This 36 yrs old Female presents to ER via Ambulatory with complaints of pranay Cough, Congestion, Headache. 16:43 The patient or guardian reports airway noise, cough, difficulty breathing. pranay Historical: - Allergies: 16:08 PENICILLINS; ab2 - PMHx: 16:08 Kidney stones; ab2 - PSHx: 16:08 Cholecystectomy; Tonsillectomy; ab2 - Immunization history:: Adult Immunizations up to date. - Social history:: Smoking status: Patient reports the use of cigarette tobacco products, smokes one-half pack cigarettes per day. ROS: 16:43 Constitutional: Negative for fever, chills, and weight loss, Eyes: Negative for injury, pranay pain, redness, and discharge, ENT: Negative for injury, pain, and discharge, Neck: Negative for injury, pain, and swelling, Cardiovascular: Negative for chest pain, palpitations, and edema, Abdomen/GI: Negative for abdominal pain, nausea, vomiting, diarrhea, and constipation, Back: Negative for injury and pain, : Negative for injury, bleeding, discharge, and swelling, MS/Extremity: Negative for injury and deformity, Skin: Negative for injury, rash, and discoloration, Neuro: Negative for headache, weakness, numbness, tingling, and seizure, Psych: Negative for depression, anxiety, suicide ideation, homicidal ideation, and hallucinations, Allergy/Immunology: Negative for hives, rash, and allergies, Endocrine: Negative for neck swelling, polydipsia, polyuria, polyphagia, and marked weight changes, Hematologic/Lymphatic: Negative for swollen nodes, abnormal bleeding, and unusual bruising. 16:43 Respiratory: Positive for cough, with green sputum, wheezing, inspiratory, expiratory. Exam: 16:43 Constitutional: This is a well developed, well nourished patient who is awake, alert, pranay and in no acute distress. Head/Face: Normocephalic, atraumatic. Eyes: Pupils equal round and reactive to light, extra-ocular motions intact. Lids and lashes normal. Conjunctiva and sclera are non-icteric and not injected. Cornea within normal limits. Periorbital areas with no swelling, redness, or edema. ENT: Nares patent. No nasal discharge, no septal abnormalities noted. Tympanic membranes are normal and external auditory canals are clear. Oropharynx with no redness, swelling, or masses, exudates, or evidence of obstruction, uvula midline. Mucous membranes moist. Neck: Trachea midline, no thyromegaly or masses palpated, and no cervical lymphadenopathy. Supple, full range of motion without nuchal rigidity, or vertebral point tenderness. No Meningismus. Chest/axilla: Normal chest wall appearance and motion. Nontender with no deformity. No lesions are appreciated. Cardiovascular: Regular rate and rhythm with a normal S1 and S2. No gallops, murmurs, or rubs. Normal PMI, no JVD. No pulse deficits. Abdomen/GI: Soft, non-tender, with normal bowel sounds. No distension or tympany. No guarding or rebound. No evidence of tenderness throughout. Back: No spinal tenderness. No costovertebral tenderness. Full range of motion. Skin: Warm, dry with normal turgor. Normal color with no rashes, no lesions, and no evidence of cellulitis. MS/ Extremity: Pulses equal, no cyanosis. Neurovascular intact. Full, normal range of motion. Neuro: Awake and alert, GCS 15, oriented to person, place, time, and situation. Cranial nerves II-XII grossly intact. Motor strength 5/5 in all extremities. Sensory grossly intact. Cerebellar exam normal. Normal gait. Psych: Awake, alert, with orientation to person, place and time. Behavior, mood, and affect are within normal limits. 16:43 Respiratory: the patient does not display signs of respiratory distress, Breath sounds: bronchial sounds, that are mild, decreased breath sounds, that are mild, rhonchi, that are mild, are scattered, stridor, is not appreciated, + upper airway congestion. wheezing: expiratory Vital Signs: 16:03 BP 109 / 73; Pulse 63; Resp 17; Temp 98.3(TE); Pulse Ox 100% on R/A; Weight 107.05 kg; ab2 Height 5 ft. 9 in. (175.26 cm); Pain 4/10; 16:03 Body Mass Index 34.85 (107.05 kg, 175.26 cm) ab2 MDM: 16:13 Patient medically screened. [facility] 16:46 Differential Diagnosis: Bronchitis Influenza Upper Respiratory Infection Sinusitis pranay Pharyngitis Allergic Rhinitis Viral Syndrome Pneumonia. Data reviewed: vital signs, nurses notes, lab test result(s), radiologic studies, plain films. Data interpreted: school lunch monitor: not applicable for this patient encounter. rate is 63 beats/min, Pulse oximetry: on room air is 100 %. Test interpretation: by ED physician or midlevel provider: plain radiologic studies. 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 12/15 16:43 Order name: CBC with Diff; Complete Time: 18:09 [facility] 12/15 16:43 Order name: Comprehensive Metabolic Panel; Complete Time: 18:24 [facility] 12/15 16:43 Order name: Chest Pa And Lat (2 Views) XRAY; Complete Time: 18:09 [facility] Administered Medications: 17:43 Drug: SOLU-Medrol (methylPrednisoLONE) 125 mg Route: IVP; Site: left antecubital; iw 17:43 Drug: Albuterol - atroVENT (ipratropium) (3:1) (2.5 mg - 0.5 mg) 3 ml Route: Nebulizer; iw 17:43 Drug: NS 0.9% 1000 ml Route: IV; Rate: 1 bolus; Site: left antecubital; iw 17:43 Drug: predniSONE 40 mg Route: PO; iw 17:43 Drug: LevOfloxacin 750 mg Route: PO; iw Disposition Summary: 12/15/21 18:24 Discharge Ordered Location: Home pranay Problem: new pranay Symptoms: have improved pranay Condition: Stable pranay Diagnosis - Bronchitis, not specified as acute or chronic pranay - Tobacco abuse counseling pranay - Tobacco use pranay - Acute upper respiratory infection, unspecified pranay - Headache pranay Followup: pranay - With: Private Physician - When: 2 - 3 days - Reason: Recheck today's complaints, Re-evaluation by your physician Followup: pranay - With: - When: 2 - 3 days - Reason: Recheck today's complaints, Continuance of care, Re-evaluation by your physician Discharge Instructions: - Discharge Summary Sheet pranay - Chronic Bronchitis, Adult pranay - General Headache Without Cause pranay - Upper Respiratory Infection, Adult pranay - Cool Mist Vaporizer pranay - Upper Respiratory Infection, Adult, [id number] pranay - Steps to Quit Smoking, Sdxp-up-[id number] pranay - General Headache Without Cause, [id number]-Mfny pranay - Cough, Adult pranay Forms: - Medication Reconciliation Form pranay - Thank You Letter pranay - Antibiotic Education pranay - Prescription Opioid Use pranay - Work release form Prescriptions: - Prednisone 20 mg Oral Tablet - take 2 tablets by ORAL route once daily for 5 days; 10 tablet; Refills: 0, pranay Product Selection Permitted - levofloxacin 750 mg Oral Tablet - take 1 tablet by ORAL route once daily; 8 tablet; Refills: 0, Product Selection [facility] Permitted - Bromfed DM 2-30-10 mg/5 mL Oral syrup - take 10 milliliter by ORAL route every 6 hours; 180 milliliter; Refills: 0, cp Product Selection Permitted - albuterol sulfate 90 mcg/actuation Inhalation HFA aerosol inhaler - inhale 2 puff by INHALATION route every 6 hours; 1 Pump; Refills: 0, Product cp Selection Permitted Signatures: Dispatcher [employer] Damian James MD MD cha Williams, Irene, RN RN Wagner Wallace
[2021-12-15 18:46] VITALS: BP 109/73; TEMP 98.3; O2SAT 100
== END 2021-12-15 18:39 | disposition home or self-care (01) ==
LOC: ER 15:30
DX: J40 Bronchitis, not specified as acute or chronic (principal); J06.9 Acute upper respiratory infection, unspecified; R51.9 Headache, unspecified; Z72.0 Tobacco use; Z71.6 Tobacco abuse counseling; Z88.0 Allergy status to penicillin
CPT/HCPCS: 36415; 71046; 80053; 85025; 94640; 96374; 99284; J2930; J7030; J7512

== ENCOUNTER 2022-02-10 16:46 | Emergency (ER) | payer SELFPAY ==
--- OUTSIDE RECORDS SUMMARY | 2022-02-10 16:49 | XMS REPORT | Continuity of Care Document ---
:1985 Author Organization [facility] t Address [address] [place] [place] [address] Care Team Providers Name Role Phone Rambo [...] A ins 11-16 [place] 00:00: d 00 [facility] [place] DA Active SV ANAPHALACTIC 2020-09 A ins 10-25 [place] 00:00: d 00 [facility] Medications This patient has no known medications. Procedures This patient has no known procedures. Encounters Start End Encounter Admission Attending Care Care Encounter Source Date/Time Date/Time Type Type Clinicians Facility Department ID 2021-09-15 Inpatient EM Rambo [facility]ENN[facility]Y [facility] [id number] [facility] 08:38:00 Arturo 94 [facility] 2021-09-15 2021-09-15 Emergency EM KENNEDY Ricks JILL [id number] [facility] 08:37:00 08:37:00 Arturo [id number] [facility] 2021-08-24 2021-08-24 Emergency EM KENNEDY Urena JILL [id number] [facility] 13:01:00 15:36:00 S[place] [id number] [facility] 2021-08-24 2021-08-24 Emergency EM EMILY UrenaMN [facility] [id number] [facility] 13:01:00 15:36:00 Sobia 32 [facility] Results Test Description Test Time Test Comments Results Result [facility] e Comments - XR HAND 3 + V RT 2021-08-24 13:58:00 [facility] : 1985 Sex: F FAX: Stephen Restrepo [phone] [place]: St: PRE Name: MADAN [facility]ETT [facility] : 1985 Age/S: 36/F [address] [facility] Unit #: [id number] Loc: [address] Phys: Stephen Restrepo [address] Acct: [id number] Dis Date: Status: PRE ER PHONE #: [phone] Exam Date: 08/24/2021 1355 FAX #: [phone] Reason: fall, left knee and right hand pain EXAMS: CPT CODE: [id number] XR HAND 3 + V RT 52736 EXAMINATION: - XR HAND 3 + V RT. LOCATION: H39. HISTORY: fall, left knee and right hand pain. COMPARISON: None. TECHNIQUE: AP, lateral, and oblique views of the right hand were obtained. FINDINGS: No acute fracture or dislocation is identified. Soft tissue structures appear within normal limits. IMPRESSION: No acute osseous abnormality is identified. at 2755 Reported and signed by: Daniel Fajardo M.D. CC: Stephen FISHER Technologist: STACI Workman Trnscrd Date/Time/By: 08/24/2021 (8603) : By: [email or web address] PAGE 1 Signed Report FAX: Stephen Restrepo [phone] [place]: St: PRE Name: MADAN EVERETT [facility] : 1985 Age/S: 36/F [address] [facility] Unit #: [id number] Loc: [address] Phys: Stephen Restrepo [address] Acct: [id number] Dis Date: Status: PRE ER PHONE #: [phone] Exam Date: 08/24/2021 1355 FAX #: [phone] Reason: fall, left knee and right hand pain EXAMS: CPT CODE: [id number] XR HAND 3 + V RT 31575 <Continued> Orig Print D/T: S: 08/24/2021 (9612) PAGE 2 Signed Report - XR KNEE 3 V LT 2021-08-24 13:57:00 [facility] : 1985 Sex: F FAX: Stephen Restrepo [phone] [place]: St: PRE Name: MADAN [facility]ETT [facility] [place] : 1985 Age/S: 36/F [address] [facility] [employer] Unit #: [id number] Loc: E.ERS2 [place], [place] Phys: Stephen Restrepo [address] Acct: [id number] Dis Date: Status: PRE ER PHONE #: [phone] Exam Date: 08/24/2021 1355 FAX #: [phone] Reason: fall, left knee and right hand pain EXAMS: CPT CODE: [id number] XR KNEE 3 [place] LT [id number] EXAMINATION: - XR KNEE 3 V LT. [...] M.D. CC: Stephen FISHER Technologist: STACI Workman Trnncrd Date/Time/By: 08/24/2021 (2848) : By: [email or web address] PAGE 1 Signed Report FAX: Stephen Restrepo [phone] [place]: St: PRE Name: MADAN [facility]ETT [facility] [place] : 1985 Age/S: 36/F [address] [facility] Unit #: [id number] Loc: [address] Phys: Stephen Restrepo [address] Acct: [id number] Dis Date: Status: PRE ER PHONE #: [phone] Exam Date: 08/24/2021 6732 FAX #: [phone] Reason: fall, left knee and right hand pain EXAMS: CPT CODE: [id number] XR KNEE 3 [place] [id number] <Continued> Orig Print D/T: S: 08/24/2021 (1400) PAGE 2 Signed Report
[2022-02-10] MEDS ORDERED: METOCLOPRAMIDE 10 MG/2mL INJ ONE (17:51)
[2022-02-10] MEDS ORDERED: dexAMETHasone 10 MG/ML VIAL ONE (17:52)
[2022-02-10] MEDS ORDERED: DIPHENHYDRAMINE 50 MG/ML VIAL ONE (17:52)
--- NOTE | 2022-02-10 18:21 | RAD REPORT ---
EXAM DESCRIPTION: CT - Head Brain Wo Cont - 02/10/2022 5:56 pm CLINICAL HISTORY: Headache, tension-type COMPARISON: <Comparisons> TECHNIQUE: Axial 5 mm thick images of the head were obtained without IV contrast. All CT scans are performed using dose optimization technique as appropriate and may include automated exposure control or mA/KV adjustment according to patient size. FINDINGS: No intracranial hemorrhage, mass, edema or shift of mid-line structures. No acute infarcti on changes seen. No abnormal extra-axial fluid collections. Ventricles are normal. Mastoid air cells and visualized portions of the paranasal sinuses are clear. No acute bony findings. IMPRESSION: Negative non-contrast CT head examination.
--- NOTE | 2022-02-10 18:32 | EDPHYS ---
Physician Documentation [facility] Name: Lilliana Escobedo Age: 36 yrs Sex: Female : 1985 Arrival Date: 02/10/2022 Time: 16:48 Bed 12 Private MD: ED Physician Kevin Fang HPI: 02/10 17:27 This 36 yrs old Female presents to ER via Ambulatory with complaints of Headache, ms3 Nausea, Diarrhea. 17:27 The patient complains of pain to the forehead. The patient describes the headache as a ms3 pressure. Onset: The symptoms/episode began/occurred 3 day(s) ago. Associated signs and symptoms: Pertinent positives: nausea, Diarrhea, Pertinent negatives: nausea, vomiting. Severity of symptoms: At its worst the pain was severe, in the emergency department the pain has improved, a " 5" out of "10". Headache History: The patient has had previous headaches and this one is different than previous episodes. The symptoms are alleviated by over the counter pain medication, OTC NSAIDS, the symptoms are aggravated by nothing. 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 Flu vaccine is not up to date. - Social history:: Smoking status: Patient reports the use of cigarette tobacco products, smokes one-half pack cigarettes per day. ROS: 17:27 Constitutional: Negative for fever, and chills. ENT: Negative for injury, pain, and ms3 discharge, Neck: Negative for injury, pain, and swelling, Cardiovascular: Negative for chest pain, and palpitations. Respiratory: Negative for shortness of breath, cough, wheezing, and pleuritic chest pain, Skin: Negative for injury, rash, and discoloration. 17:27 Abdomen/GI: Positive for nausea, Negative for vomiting. 17:27 Neuro: Positive for headache. Exam: 17:27 Constitutional: This is a well developed, well nourished patient who is awake, alert, ms3 and in no acute distress. Head/Face: Normocephalic, atraumatic. Neck: Trachea midline, no cervical lymphadenopathy. Supple, full range of motion without nuchal rigidity, or vertebral point tenderness. No Meningismus. Chest/axilla: Normal chest wall appearance and motion. Nontender with no deformity. Cardiovascular: Regular rate and rhythm with a normal S1 and S2. No gallops, murmurs, or rubs. Normal PMI, no JVD. No pulse deficits. Respiratory: Lungs have equal breath sounds bilaterally, clear to auscultation and percussion. No rales, rhonchi or wheezes noted. No increased work of breathing, no retractions or nasal flaring. Abdomen/GI: Soft, non-tender, with normal bowel sounds. No distension or tympany. No guarding or rebound. No evidence of tenderness throughout. Neuro: Awake and alert, GCS 15, oriented to person, place, time, and situation. Cranial nerves II-XII grossly intact. Motor strength 5/5 in all extremities. Sensory grossly intact. Cerebellar exam normal. Normal gait. Psych: Awake, alert, with orientation to person, place and time. Behavior, mood, and affect are within normal limits. Vital Signs: 17:13 BP 108 / 75; Pulse 64; Resp 18 S; Temp 97.7(TE); Pulse Ox 99% on R/A; Weight 113.4 kg jd3 (R); Height 5 ft. 9 in. (175.26 cm) (R); Pain 6/10; 17:13 Body Mass Index 36.92 (113.40 kg, 175.26 cm) jd3 MDM: 17:27 Differential diagnosis: ICH vs Generalized LUCAS vs Sinusitis. ms3 17:46 Patient medically screened. ms3 18:31 Data reviewed: vital signs, nurses notes, radiologic studies, CT scan. Data ms3 interpreted: Pulse oximetry: on room air is 99 %. Interpretation: normal. Counseling: I had a detailed discussion with the patient and/or guardian regarding: the historical points, exam findings, and any diagnostic results supporting the discharge/admit diagnosis, radiology results, the need for outpatient follow up, to return to the emergency department if symptoms worsen or persist or if there are any questions or concerns that arise at home. 18:32 ED course: Patient improved, nad, non-toxic, ambulatory in ED, speaking full sentences. ms3 Patient to follow up as discussed. Patient understands/ agrees with plan. All questions answered. Return precautions given to include worsening symptoms, or any other concerns.. 02/10 17:32 Order name: CT Head Brain wo Cont; Complete Time: 18:29 ms3 02/10 17:53 Order name: IV Saline Lock; Complete Time: 18:09 mb7 Administered Medications: 18:10 Drug: Benadryl (diphenhydrAMINE) 25 mg Route: IVP; Site: right forearm; ww 18:12 Drug: Decadron - Dexamethasone 10 mg Route: IVP; Site: right forearm; ww 18:20 Drug: Reglan (metoCLOPramide) 10 mg Route: IVP; Site: right forearm; ww Disposition Summary: 02/10/22 18:31 Discharge Ordered Location: Home ms3 Condition: Stable ms3 Diagnosis - Headache ms3 Followup: ms3 - With: Luís Avalos MD - When: 2 - 3 days - Reason: Recheck today's complaints Discharge Instructions: - Discharge Summary Sheet ms3 - General Headache Without Cause ms3 Forms: - Medication Reconciliation Form ms3 - Thank You Letter ms3 - Antibiotic Education ms3 - Work release form iw - Prescription Opioid Use ms3 Signatures: Dispatcher [employer] Semaj Dixon RN RN jd3 Kevin Fang DO DO ms3 Mame Nunez mb7 Grace Lewis RN RN ww
--- NOTE | 2022-02-10 18:32 | ER ---
Nurse's Notes [facility] Name: Lilliana Escobedo Age: 36 yrs Sex: Female : 1985 Arrival Date: 02/10/2022 Time: 16:48 Bed 12 Private MD: Diagnosis: Headache Presentation: 02/10 17:11 Chief complaint: Patient states: "I have been having a headache that has been going on jd3 for about 3 days ago. it has just been getting worse to the point where I get nauseous.". Coronavirus screen: At this time, the client does not indicate any symptoms associated with coronavirus-19. Ebola Screen: No symptoms or risks identified at this time. Initial Sepsis Screen: Does the patient meet any 2 criteria? No. Patient's initial sepsis screen is negative. Does the patient have a suspected source of infection? No. Patient's initial sepsis screen is negative. Risk Assessment: Do you want to hurt yourself or someone else? Patient reports no desire to harm self or others. Onset of symptoms was February 07, 2022. 17:11 Method Of Arrival: Ambulatory jd3 17:11 Acuity: SELWYN 3 jd3 17:13 Note 800 mg Ibuprofen taken at 1400. 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 Flu vaccine is not up to date. - Social history:: Smoking status: Patient reports the use of cigarette tobacco products, smokes one-half pack cigarettes per day. Screenin:21 Abuse screen: Denies threats or abuse. Denies injuries from another. Nutritional ww screening: No deficits noted. Tuberculosis screening: No symptoms or risk factors identified. Fall Risk None identified. Assessment: 18:21 General: Appears uncomfortable, Behavior is calm, cooperative. Pain: Complains of pain ww in scalp. Neuro: Level of Consciousness is awake, alert, obeys commands, Oriented to person, place, time, situation, Moves all extremities. Gait is steady, Speech is normal, Reports headache. Cardiovascular: Patient's skin is warm and dry. Respiratory: Airway is patent Respiratory effort is even, unlabored, Respiratory pattern is regular, symmetrical. GI: No signs and/or symptoms were reported involving the gastrointestinal system. : No signs and/or symptoms were reported regarding the genitourinary system. Vital Signs: 17:13 BP 108 / 75; Pulse 64; Resp 18 S; Temp 97.7(TE); Pulse Ox 99% on R/A; Weight 113.4 kg jd3 (R); Height 5 ft. 9 in. (175.26 cm) (R); Pain 6/10; 17:13 Body Mass Index 36.92 (113.40 kg, 175.26 cm) jd3 ED Course: 16:48 Patient arrived in ED. am2 17:12 Kevin Fang DO is Attending Physician. ms3 17:12 Triage completed. jd3 17:14 Arm band placed on. jd3 17:58 CT Head Brain wo Cont In Process Unspecified. EDMS 18:09 Inserted saline lock: 20 gauge in right wrist, using aseptic technique. mb7 18:21 Patient has correct armband on for positive identification. Bed in low position. Call ww light in reach. Side rails up X 1. 18:31 Luís Avalos MD is Referral Physician. ms3 18:50 No provider procedures requiring assistance completed. IV discontinued, intact, ww bleeding controlled, No redness/swelling at site. Pressure dressing applied. Administered Medications: 18:10 Drug: Benadryl (diphenhydrAMINE) 25 mg Route: IVP; Site: right forearm; ww 18:12 Drug: Decadron - Dexamethasone 10 mg Route: IVP; Site: right forearm; ww 18:20 Drug: Reglan (metoCLOPramide) 10 mg Route: IVP; Site: right forearm; ww Medication: 18:21 VIS not applicable for this client. ww Outcome: 18:31 Discharge ordered by . ms3 18:50 Discharged to home ambulatory. ww 18:50 Condition: stable 18:50 Discharge instructions given to patient, Instructed on discharge instructions, follow up and referral plans. safety practices, Demonstrated understanding of instructions, follow-up care. 18:51 Patient left the ED. ww Signatures: Dispatcher [employer] EDMS Tracey White am2 Semaj Zarco, CESAR RN jd3 Kevin Fang DO DO ms3 Mame Nunez mb7 Grace Lewis, RN RN ww
[2022-02-10 19:02] VITALS: BP 108/75; TEMP 97.7; O2SAT 99
== END 2022-02-10 18:51 | disposition home or self-care (01) ==
LOC: ER 16:46
DX: R51.9 Headache, unspecified (principal); Z88.0 Allergy status to penicillin; F17.210 Nicotine dependence, cigarettes, uncomplicated
CPT/HCPCS: 70450; 96374; 96375; 99283; J1100; J1200; J2765

== ENCOUNTER 2022-04-17 17:09 | Emergency (ER) | payer SELFPAY ==
[2022-04-17 18:21] LABS: Absolute Lymphocytes (CBC) 2.4 K/uL (0.7-4.9); Hematocrit 43.2 % (36.0-45.0); Lymphocytes % 21.8 % (15.3-44.8); MCV 93.2 fL (80-100); MPV 8.9 fL (7.6-11.3); RBC Red Blood Cell Count 4.64 M/uL (3.86-4.86)
[2022-04-17 18:34] LABS: Albumin 3.6 g/dL (3.4-5.0); Bilirubin Total 0.2 mg/dL (0.2-1.0); Potassium 4.1 mmol/L (3.5-5.1); Protein, Total 7.1 g/dL (6.4-8.2)
[2022-04-17] MEDS ORDERED: ONDANSETRON 4 MG/2 ML VIAL ONE ×2 (19:45→21:28)
[2022-04-17] MEDS ORDERED: NA CHLORIDE 0.9% 1,000 ML ONE (19:45)
[2022-04-17 19:55] LABS: Urine Blood Negative (Negative); Urine Glucose Negative (Negative); Urine Protein Negative (Negative); Urine Specific Gravity >=1.030 (1.005-1.030)
--- NOTE | 2022-04-17 20:03 | ER ---
Nurse's Notes [facility] Name: Lilliana Escobedo Age: 36 yrs Sex: Female : 1985 Arrival Date: 04/17/2022 Time: 17:21 Bed 18 Private MD: Diagnosis: Diarrhea, unspecified;Nausea Presentation: 04/17 17:51 Chief complaint: Patient states: diarrhea since last night, no vomiting. Coronavirus iw screen: At this time, the client does not indicate any symptoms associated with coronavirus-19. Ebola Screen: Patient negative for fever greater than or equal to 101.5 degrees Fahrenheit, and additional compatible Ebola Virus Disease symptoms Patient denies exposure to infectious person. Patient denies travel to an Ebola-affected area in the 21 days before illness onset. No symptoms or risks identified at this time. Initial Sepsis Screen: Does the patient meet any 2 criteria? No. Patient's initial sepsis screen is negative. Does the patient have a suspected source of infection? No. Patient's initial sepsis screen is negative. Risk Assessment: Do you want to hurt yourself or someone else? Patient reports no desire to harm self or others. Onset of symptoms was April 17, 2022. 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 - Social history:: Smoking status: unknown. Screenin:46 Abuse screen: Denies threats or abuse. Denies injuries from another. Nutritional sm5 screening: No deficits noted. Tuberculosis screening: No symptoms or risk factors identified. Fall Risk None identified. Assessment: 19:47 General: Appears in no apparent distress. Behavior is cooperative. Pain: Complains of sm5 pain in abdomen Quality of pain is described as "bubbly". Neuro: Level of Consciousness is awake, alert, obeys commands, Oriented to person, place, time, situation. Cardiovascular: Capillary refill < 3 seconds Patient's skin is warm and dry. Respiratory: Airway is patent Trachea midline Respiratory effort is even, unlabored. GI: Abdomen is obese, Reports diarrhea. 20:41 Reassessment: Patient and/or family updated on plan of care and expected duration. Pain sm5 level reassessed. Patient states feeling better. 21:36 Reassessment: No changes from previously documented assessment. Patient and/or family sm5 updated on plan of care and expected duration. Pain level reassessed. Vital Signs: 17:51 BP 119 / 64; Pulse 89; Resp 16; Temp 97.4; Pulse Ox 100% on R/A; iw 19:46 BP 120 / 65; Pulse 64; Resp 17; Pulse Ox 100% on R/A; sm5 20:34 BP 111 / 56; Pulse 52; Resp 18; Pulse Ox 100% on R/A; sm5 21:36 BP 100 / 63; Pulse 51; Resp 17; Pulse Ox 100% on R/A; sm5 ED Course: 17:21 Patient arrived in ED. as 17:51 Triage completed. iw 17:52 Arm band placed on. iw 17:54 Jef Sarah NP is PHCP. pm1 17:54 Damian Connor MD is Attending Physician. pm1 18:20 Inserted saline lock: 22 gauge in right antecubital area, using aseptic technique. iw 19:35 Blessing Roldan RN is Primary Nurse. sm5 19:47 Patient has correct armband on for positive identification. Bed in low position. Call sm5 light in reach. Side rails up X2. Pulse ox on. NIBP on. 21:37 No provider procedures requiring assistance completed. IV discontinued, intact, sm5 bleeding controlled, No redness/swelling at site. Pressure dressing applied. Administered Medications: 19:45 Drug: NS 0.9% 1000 ml Route: IV; Rate: 1 bolus; Site: right antecubital; sm5 21:37 Follow up: IV Status: Completed infusion; IV Intake: 1000ml sm5 19:45 Drug: Zofran (Ondansetron) 4 mg Route: IVP; Site: right antecubital; sm5 20:51 Follow up: Response: No adverse reaction; Nausea is decreased sm5 20:06 Drug: Bentyl (dicyclomine) 20 mg Route: PO; sm5 20:51 Follow up: Response: No adverse reaction 5 20:51 Not Given (Other Intervention Used): Zofran (Ondansetron) 4 mg IVP once; over 2 minutes sm5 Medication: 19:48 VIS not applicable for this client. sm5 Intake: 21:37 IV: 1000ml; Total: 1000ml. sm5 Outcome: 20:03 Discharge ordered by . pm1 21:37 Discharged to home ambulatory. sm5 21:37 Condition: stable 21:37 Discharge instructions given to patient, Instructed on discharge instructions, follow up and referral plans. medication usage, Demonstrated understanding of instructions, follow-up care, medications, Prescriptions given X 2. 21:38 Patient left the ED. sm5 Signatures: Gabbie Hubbard Irene, RN RN iw Jef Sarah, REPAIR COIL WINDER REPAIR COIL WINDER pm1 Blessing Roldan RN RN sm5 Corrections: (The following items were deleted from the chart) 18:09 17:51 Resp 16bpm; Pulse Ox 100% RA; Temp 97.4F; iw iw
--- NOTE | 2022-04-17 20:03 | EDPHYS ---
Physician Documentation [facility] Name: Lilliana Escobedo Age: 36 yrs Sex: Female : 1985 Arrival Date: 04/17/2022 Time: 17:21 Bed 18 Private MD: ED Physician Damian Connor HPI: 04/17 17:55 This 36 yrs old Female presents to ER via Ambulatory with complaints of Diarrhea. pm1 17:55 The patient presents to the emergency department with diarrhea. Onset: The pm1 symptoms/episode began/occurred last night. Possible causes: bad food exposure, [employer] 1-2 hours prior to onset of diarrhea. The symptoms are aggravated by nothing. The symptoms are alleviated by OTC meds, Lomotil. Associated signs and symptoms: Pertinent negatives: abdominal pain, dysuria, fever, nausea, vomiting. Severity of symptoms: in the emergency department the symptoms have improved with Lomotil but patient reports feeling dehydrated and weak. The patient has not experienced similar symptoms in the past. The patient has not recently seen a physician. 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 - Social history:: Smoking status: unknown. ROS: 17:55 Cardiovascular: Negative for chest pain, palpitations, and edema, Respiratory: Negative pm1 for shortness of breath, cough, wheezing, and pleuritic chest pain. 17:55 Back: Negative for injury and pain, : Negative for injury, bleeding, discharge, and swelling, MS/Extremity: Negative for injury and deformity, Skin: Negative for injury, rash, and discoloration, Neuro: Negative for headache, weakness, numbness, tingling, and seizure. 17:55 Constitutional: Positive for poor PO intake, Negative for body aches, fever. 17:55 Abdomen/GI: Positive for diarrhea, Negative for abdominal pain, nausea and vomiting. 17:55 All other systems are negative. Exam: 17:55 Constitutional: This is a well developed, well nourished patient who is awake, alert, pm1 and in no acute distress. Head/Face: Normocephalic, atraumatic. 17:55 Back: No spinal tenderness. No costovertebral tenderness. Full range of motion. Skin: Warm, dry with normal turgor. Normal color with no rashes, no lesions, and no evidence of cellulitis. MS/ Extremity: Pulses equal, no cyanosis. Neurovascular intact. Full, normal range of motion. 17:55 Eyes: Exam is negative for acute changes, Conjunctiva: no acute changes, no injection. 17:55 ENT: Exam is negative for acute changes, Mouth: no acute changes, Lips: normal, moist, Oral mucosa: normal, pink and intact, moist. 17:55 Cardiovascular: Exam negative for acute changes, Rate: normal, Rhythm: regular, Pulses: no pulse deficits are appreciated. 17:55 Respiratory: Exam negative for acute changes, respiratory distress, shortness of breath. 17:55 Abdomen/GI: Inspection: obese Palpation: abdomen is soft and non-tender, in all quadrants. 17:55 Neuro: Exam negative for acute changes, Orientation: is normal, Mentation: is normal, Motor: moves all fours, Gait: is steady, at a normal pace, without difficulty. Vital Signs: 17:51 BP 119 / 64; Pulse 89; Resp 16; Temp 97.4; Pulse Ox 100% on R/A; iw 19:46 BP 120 / 65; Pulse 64; Resp 17; Pulse Ox 100% on R/A; sm5 20:34 BP 111 / 56; Pulse 52; Resp 18; Pulse Ox 100% on R/A; sm5 21:36 BP 100 / 63; Pulse 51; Resp 17; Pulse Ox 100% on R/A; sm5 MDM: 17:58 Data reviewed: vital signs. Data interpreted: Pulse oximetry: on room air is 100 %. pm1 Interpretation: normal. 17:58 Patient medically screened. pm1 20:00 Counseling: I had a detailed discussion with the patient and/or guardian regarding: the pm1 historical points, exam findings, and any diagnostic results supporting the discharge/admit diagnosis, lab results, the need for outpatient follow up, to return to the emergency department if symptoms worsen or persist or if there are any questions or concerns that arise at home. 20:04 ED course: Patient requesting to return to work tomorrow. pm1 04/17 17:55 Order name: CBC with Diff; Complete Time: 18:36 pm1 04/17 17:55 Order name: CMP; Complete Time: 18:36 pm1 04/17 17:55 Order name: Lipase; Complete Time: 18:36 pm1 04/17 17:55 Order name: Flu; Complete Time: 18:54 pm1 04/17 17:55 Order name: SARS-COV-2 RT PCR (Document "Date of Onset" if Symptomatic); Complete Time: pm1 19:54 04/17 19:56 Order name: Urine Dipstick-Ancillary; Complete Time: 19:57 EDMS 04/17 17:55 Order name: IV Saline Lock; Complete Time: 19:46 pm1 04/17 17:55 Order name: Labs collected and sent; Complete Time: 19:46 pm1 04/17 17:55 Order name: Urine Dipstick-Ancillary (obtain specimen); Complete Time: 19:56 pm1 04/17 17:55 Order name: Urine Test (obtain specimen); Complete Time: 19:56 pm1 Administered Medications: 19:45 Drug: NS 0.9% 1000 ml Route: IV; Rate: 1 bolus; Site: right antecubital; sm5 21:37 Follow up: IV Status: Completed infusion; IV Intake: 1000ml sm5 19:45 Drug: Zofran (Ondansetron) 4 mg Route: IVP; Site: right antecubital; sm5 20:51 Follow up: Response: No adverse reaction; Nausea is decreased sm5 20:06 Drug: Bentyl (dicyclomine) 20 mg Route: PO; sm5 20:51 Follow up: Response: No adverse reaction sm5 20:51 Not Given (Other Intervention Used): Zofran (Ondansetron) 4 mg IVP once; over 2 minutes sm5 Disposition Summary: 04/17/22 20:03 Discharge Ordered Location: Home pm1 Problem: new pm1 Symptoms: have improved pm1 Condition: Stable pm1 Diagnosis - Diarrhea, unspecified pm1 - Nausea pm1 Followup: pm1 - With: Emergency Department - When: As needed - Reason: Worsening of condition Followup: pm1 - With: Private Physician - When: 2 - 3 days - Reason: Recheck today's complaints, Continuance of care, Re-evaluation by your physician Discharge Instructions: - Discharge Summary Sheet pm1 - Food Choices to Help Relieve Diarrhea, Adult pm1 - Diarrhea, Adult pm1 - Food Poisoning pm1 - Nausea, Adult pm1 Forms: - Medication Reconciliation Form pm1 - Thank You Letter pm1 - Antibiotic Education pm1 - Prescription Opioid Use pm1 - Work release form pm1 Prescriptions: - ondansetron 4 mg Oral tablet,disintegrating - place 1 tablet by TRANSLINGUAL route every 8 hours As needed; 12 tablet; pm1 Refills: 0, Product Selection Permitted - dicyclomine 20 mg Oral Tablet - take 1 tablet by ORAL route every 6 hours As needed; 20 tablet; Refills: 0, pm1 Product Selection Permitted Signatures: Dispatcher [employer] Nusrat Lewis RN RN iw Jef Sarah, DELLA TELEVISION SCHEDULE COORDINATOR pm1 Blessing Roldan RN RN sm5
[2022-04-17] MEDS ORDERED: DICYCLOMINE HCL 10 MG CAP ONE (20:11)
[2022-04-18 01:12] VITALS: TEMP 97.4; O2SAT 100
[2022-04-18 01:24] VITALS: BP 100/63
== END 2022-04-17 21:38 | disposition home or self-care (01) ==
LOC: ER 17:09
DX: R19.7 Diarrhea, unspecified (principal); R11.0 Nausea; Z88.0 Allergy status to penicillin
CPT/HCPCS: 36415; 80053; 81003; 83690; 85025; 87804; 96361; 96374; 99284; J2405; J7030; U0003

== ENCOUNTER 2022-05-01 06:33 | Emergency (ER) | payer SELFPAY ==
--- OUTSIDE RECORDS SUMMARY | 2022-05-01 06:36 | XMS REPORT | Continuity of Care Document ---
:1985 Author Organization [facility] t Address [address] [place] [address] Care Team Providers Name Role Phone Arturo Ricks Attending Clinician Unavailable Sobia Urena Attending Clinician Unavailable Physician, No Primary or Family Admitting Clinician Unavaila ble Payers Payer Name Policy Type Policy Number [...] Department ID 2021-09-15 Inpatient EM KENNEDY Ricks [id number] 91 [facility] 08:38:00 Arturo 94 [facility] 2021-09-15 2021-09-15 Emergency EM KENNEDY Ricks JILL [id number] 14-20 [facility] 08:37:00 08:37:00 Arturo [id number] [facility] 2021-08-24 2021-08-24 Emergency EM KENNEDY Urena JILL [id number] 20 [facility] 13:01:00 15:36:00 Sobia [id number] [facility] 2021-08-24 2021-08-24 Emergency EM EMILY UrenaMN [facility] [id number] 26 [facility] 13:01:00 15:36:00 Sobia 32 [facility] Results Test Description Test Time Test Comments Results Result [facility] tono Comments - XR HAND 3 + V RT 2021-08-24 13:58:00 [facility] : 1985 Sex: F FAX: Stephen Restrepo [phone] [place]: St: PRE Name: MADAN EVERETT [facility] : 1985 Age/S: 36/F [address] [facility] Unit #: [id number] Loc: E.ERS[address] [place] [address] Phys: Stephen Restrepo [id number] Acct: [id number] Dis Date: Status: PRE ER PHONE #: [phone] Exam Date: 08/24/2021 1355 FAX #: [phone] Reason: fall, left knee and right hand pain EXAMS: CPT CODE: [id number] XR HAND 3 + V RT [id number] EXAMINATION: - XR HAND 3 + V RT. LOCATION: H39. HISTORY: fall, left knee and right hand pain. COMPARISON: None. TECHNIQUE: AP, lateral, and oblique views of the right hand were obtained. FINDINGS: No acute fracture or dislocation is identified. Soft tissue structures appear within normal limits. IMPRESSION: No acute osseous abnormality is identified. at 3280 Reported and signed by: Daniel Fajardo M.D. CC: Stephen FISHER Technologist: STACI Workman [facility] Date/Time/By: 08/24/2021 (4792) : By: [email or web address] PAGE 1 Signed Report FAX: Stephen Restrepo [phone] [place]: St: PRE Name: MADAN EVERETT [facility] : 1985 Age/S: 36/F [address] [facility] Unit #: [id number] Loc: [address] Phys: Stephen Restrepo [id number] Acct: [id number] Dis Date: Status: PRE ER PHONE #: [phone] Exam Date: 08/24/2021 1355 FAX #: [phone] Reason: fall, left knee and right hand pain EXAMS: CPT CODE: [id number] XR HAND 3 + V RT [id number] <Continued> Orig Print D/T: S: 08/24/2021 (3028) PAGE 2 Signed Report - XR KNEE 3 V LT 2021-08-24 13:57:00 [facility] : 1985 Sex: F FAX: Stephen Restrepo [phone] [place]: St: PRE Name: MADAN EVERETT [facility] : 1985 Age/S: 36/F [address] [facility] Unit #: [id number] Loc: [address] Phys: Stephen Restrepo [id number] Acct: [id number] Dis Date: Status: PRE ER PHONE #: [phone] Exam Date: 08/24/2021 1355 FAX #: [phone] Reason: fall, left knee and right hand pain EXAMS: CPT CODE: [id number] XR KNEE 3 [place] LT [id number] EXAMINATION: - XR KNEE 3 V LT. [...] FISHER Technologist: STACI Workman Trnscrd Date/Time/By: 08/24/2021 (1438) : By: [email or web address] PAGE 1 Signed Report FAX: Stephen Restrepo [phone] [place]: St: PRE Name: MADAN EVERETT [facility] : 1985 Age/S: 36/F [address] [facility] Unit #: [id number] Loc: E.ERS2 [place], [place] Phys: Stephen Restrepo [id number] Acct: [id number] Dis Date: Status: PRE ER PHONE #: [phone] Exam Date: 08/24/2021 [facility]5 FAX #: [phone] Reason: fall, left knee and right hand pain EXAMS: CPT CODE: [id number] XR KNEE 3 [place] [id number] <Continued> Orig Print D/T: S: 08/24/2021 (1400) PAGE 2 Signed Report
--- NOTE | 2022-05-01 09:30 | ER ---
Nurse's Notes [facility] Name: Lilliana Escobedo Age: 36 yrs Sex: Female : 1985 Arrival Date: 05/01/2022 Time: 06:38 Bed 6 Private MD: Diagnosis: Viral illness;Myalgias;cough Presentation: 05/01 06:46 Chief complaint: Patient states: I have been exposed to Covid and either have it or the bb flu with symptoms of congestion, runny nose, difficulty breathing since yesterday. Coronavirus screen: congestion, cough unrelated to allergies, difficulty breathing, runny nose, Client presents with at least one sign or symptom that may indicate coronavirus-19. Ebola Screen: No symptoms or risks identified at this time. Initial Sepsis Screen: Does the patient meet any 2 criteria? No. Patient's initial sepsis screen is negative. Does the patient have a suspected source of infection? No. Patient's initial sepsis screen is negative. Risk Assessment: Do you want to hurt yourself or someone else? Patient reports no desire to harm self or others. Onset of symptoms was April 30, 2022. 06:46 Method Of Arrival: Ambulatory bb 06:46 Acuity: SELWYN 3 bb Triage Assessment: 06:49 General: Appears in no apparent distress. uncomfortable, Behavior is calm, cooperative. bb Pain: Complains of pain in head Pain currently is 6 out of 10 on a pain scale. Neuro: Level of Consciousness is awake, alert, obeys commands, Oriented to person, place, time, situation. Cardiovascular: Capillary refill < 3 seconds Patient's skin is warm and dry. Respiratory: Respiratory effort is even, unlabored. GI: No signs and/or symptoms were reported involving the gastrointestinal system. Derm: Skin is pink, warm \T\ dry. Musculoskeletal: Circulation, motion, and sensation intact. 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 - Social history:: Smoking status: Patient reports the use of cigarette tobacco products. Screenin:17 Abuse screen: Denies threats or abuse. Nutritional screening: No deficits noted. tw2 Tuberculosis screening: No symptoms or risk factors identified. Fall Risk None identified. Assessment: 07:20 General: Appears uncomfortable, Behavior is calm, cooperative. Pain: Complains of pain aa5 in whole body Pain currently is 6 out of 10 on a pain scale. Quality of pain is described as aching, Pain began 2-3 days ago. Is continuous. Neuro: Level of Consciousness is awake, alert, obeys commands, Oriented to person, place, time, situation. Cardiovascular: Heart tones S1 S2 present Rhythm is regular. Respiratory: Reports shortness of breath cough Airway is patent Respiratory effort is even, unlabored, Respiratory pattern is regular, symmetrical, Breath sounds are clear bilaterally. GI: No signs and/or symptoms were reported involving the gastrointestinal system. : No signs and/or symptoms were reported regarding the genitourinary system. EENT: Reports nasal congestion. Derm: Skin is pink, warm \T\ dry. Musculoskeletal: Range of motion: intact in all extremities. 07:42 Reassessment: Pt sleeping . aa5 09:40 Reassessment: Patient is alert, oriented x 3, equal unlabored respirations, skin aa5 warm/dry/pink. Vital Signs: 06:46 BP 123 / 75; Pulse 81; Resp 20 S; Temp 98.1(O); Pulse Ox 100% on R/A; Weight 108.86 kg bb (R); Height 5 ft. 10 in. (177.80 cm) (R); Pain 6/10; 06:46 Body Mass Index 34.44 (108.86 kg, 177.80 cm) bb ED Course: 06:38 Patient arrived in ED. bp1 06:49 Triage completed. bb 06:49 Arm band placed on Patient placed in waiting room, Patient notified of wait time. bb 06:59 Kevin Fang DO is Attending Physician. ms3 07:18 Bed in low position. Call light in reach. tw2 07:22 Ginger Jay, RN is Primary Nurse. aa5 09:28 Martinez Cox DO is Referral Physician. ms3 09:40 No provider procedures requiring assistance completed. Patient did not have IV access aa5 during this emergency room visit. Administered Medications: No medications were administered Medication: 08:25 VIS not applicable for this client. tw2 Outcome: 09:29 Discharge ordered by . ms3 09:40 Discharged to home ambulatory. aaGarcía 09:40 Condition: stable 09:40 Discharge instructions given to patient, Instructed on discharge instructions, follow up and referral plans. medication usage, Demonstrated understanding of instructions, follow-up care, medications, Prescriptions given X 1. 09:44 Patient left the ED. iw Signatures: Angela Payne RN RN bb Williams, Irene, RN RN iw Ginger Jay RN RN aa5 Vanessa Del Castillo RN RN tw2 Kevin Fang DO DO ms3 Ross, Mariah ibrahim Corrections: (The following items were deleted from the chart) 06:49 06:49 PMHx: Kidney stones; ten caal
--- NOTE | 2022-05-01 09:30 | EDPHYS ---
Physician Documentation [facility] Name: Lilliana Escobedo Age: 36 yrs Sex: Female : 1985 Arrival Date: 05/01/2022 Time: 06:38 Bed 6 Private MD: ED Physician Kevin Fang HPI: 05/01 07:23 This 36 yrs old Female presents to ER via Ambulatory with complaints of Congestion, ms3 Runny Nose, Weakness, Dizziness. 07:23 The patient or guardian reports airway noise, cough, that is intermittent. ms3 07:23 Onset: The symptoms/episode began/occurred yesterday. Severity of symptoms: At their ms3 worst the symptoms were moderate, in the emergency department the symptoms are unchanged. Modifying factors: The symptoms are alleviated by nothing, the symptoms are aggravated by nothing. Associated signs and symptoms: Pertinent positives: Cough, Rhinorrhea, myalgias. 36 yo female with PMH of bronchitis, and kidney stones presents for bodyaches, chills, LUCAS, cough that began yesterday. Patient states her discomfort is a 6/10 ad aching. Patient denies alleviating or inciting factors. Patient denies taking medications for her symptoms.. 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 - Social history:: Smoking status: Patient reports the use of cigarette tobacco products. ROS: 07:23 Neck: Negative for injury, pain, and swelling, Cardiovascular: Negative for chest pain, ms3 and palpitations. Abdomen/GI: Negative for abdominal pain, nausea, vomiting, diarrhea, and constipation, MS/Extremity: Negative for injury and deformity, Skin: Negative for injury, rash, and discoloration. 07:23 Constitutional: Positive for chills, fever. 07:23 Respiratory: Positive for cough, with no reported sputum. 07:23 All other systems are negative. Exam: 07:23 Constitutional: This is a well developed, well nourished patient who is awake, alert, ms3 and in no acute distress. Eyes: Pupils equal round and reactive to light, extra-ocular motions intact. Lids and lashes normal. Conjunctiva and sclera are non-icteric and not injected. Periorbital areas with no swelling, redness, or edema. Chest/axilla: Normal chest wall appearance and motion. Nontender with no deformity. Cardiovascular: Regular rate and rhythm with a normal S1 and S2. No gallops, murmurs, or rubs. Normal PMI, no JVD. No pulse deficits. Respiratory: Lungs have equal breath sounds bilaterally, clear to auscultation and percussion. No rales, rhonchi or wheezes noted. No increased work of breathing, no retractions or nasal flaring. Abdomen/GI: Soft, non-tender, with normal bowel sounds. No distension or tympany. No guarding or rebound. No evidence of tenderness throughout. Skin: Warm, dry with normal turgor. Normal color with no rashes, no lesions, and no evidence of cellulitis. Neuro: Awake and alert, GCS 15, oriented to person, place, time, and situation. Cranial nerves II-XII grossly intact. Motor strength 5/5 in all extremities. Sensory grossly intact. Cerebellar exam normal. Normal gait. Psych: Awake, alert, with orientation to person, place and time. Behavior, mood, and affect are within normal limits. Vital Signs: 06:46 BP 123 / 75; Pulse 81; Resp 20 S; Temp 98.1(O); Pulse Ox 100% on R/A; Weight 108.86 kg bb (R); Height 5 ft. 10 in. (177.80 cm) (R); Pain 6/10; 06:46 Body Mass Index 34.44 (108.86 kg, 177.80 cm) bb MDM: 07:19 Patient medically screened. ms3 07:23 Differential Diagnosis: Bronchitis Influenza Upper Respiratory Infection Other COVID. ms3 09:32 Data reviewed: vital signs, nurses notes, lab test result(s), and as a result, I will ms3 discharge patient. Counseling: I had a detailed discussion with the patient and/or guardian regarding: the historical points, exam findings, and any diagnostic results supporting the discharge/admit diagnosis, lab results, the need for outpatient follow up. ED course: Discussed labs, physical exam findings with patient. Patient to follow-up with Dr. Cox in 2 to 3 days. Patient understands and agrees with plan. All questions were answered. Return precautions discussed include worsening symptoms, or any other concerns. On reevaluation patient symptoms improved, patient is alert and oriented x4, no apparent distress, nontoxic, ambulatory in emergency department, tolerating p.o.. 05/01 06:51 Order name: COVID-19 SARS RT PCR (Document "Date of Onset" if Symptomatic); Complete bb Time: 09:23 05/01 06:51 Order name: Flu; Complete Time: 08:10 bb 05/01 06:51 Order name: Strep; Complete Time: 07:29 bb 05/01 07:26 Order name: Throat Culture EDMS Administered Medications: No medications were administered Disposition Summary: 05/01/22 09:29 Discharge Ordered Location: Home ms3 Condition: Stable ms3 Diagnosis - Viral illness ms3 - Myalgias ms3 - cough ms3 Followup: ms3 - With: Martinez Cox DO - When: 2 - 3 days - Reason: Re-evaluation by your physician Discharge Instructions: - Discharge Summary Sheet tw2 - Upper Respiratory Infection, Adult ms3 Forms: - Work release form tw2 - Medication Reconciliation Form ms3 - Thank You Letter ms3 - Antibiotic Education ms3 - Prescription Opioid Use ms3 Prescriptions: - Ibuprofen 600 mg Oral Tablet - take 1 tablet by ORAL route every 6 hours As needed take with food; 30 tablet; ms3 Refills: 0, Product Selection Permitted Signatures: Dispatcher [employer] EDMS Angela Payne RN RN bb Ginger Jay RN RN aa5 Kevin Fang DO DO ms3 Corrections: (The following items were deleted from the chart) 06:49 06:49 PMHx: Kidney stones; bb bb
[2022-05-01 10:16] VITALS: BP 123/75; TEMP 98.1; O2SAT 100
== END 2022-05-01 09:44 | disposition home or self-care (01) ==
LOC: ER 06:33
DX: B34.9 Viral infection, unspecified (principal); M79.10 Myalgia, unspecified site; Z20.822 Contact with and (suspected) exposure to COVID-19
CPT/HCPCS: 87070; 87081; 87804; 99282; U0003

== ENCOUNTER 2022-05-16 07:28 | Emergency (ER) | payer SELFPAY ==
--- OUTSIDE RECORDS SUMMARY | 2022-05-16 07:30 | XMS REPORT | Continuity of Care Document ---
:1985 Author Organization [facility] t Address [address] [place] [address] Care Team Providers Name Role Phone Arturo [...] Department ID 2021-09-15 Inpatient EM KENNEDY Ricks [id number] [facility] 08:38:00 Arturo 94 [facility] 2021-09-15 2021-09-15 Emergency EM KENNEDY Ricks JILL [id number] 14-20 [facility] 08:37:00 08:37:00 Arturo [id number] [facility] 2021-08-24 2021-08-24 Emergency EM KENNEDY Urena JILL [id number] [facility] 13:01:00 15:36:00 Sobia [id number] [facility] 2021-08-24 2021-08-24 Emergency EM EMILY UrenaMN [facility] [id number] [facility] 13:01:00 15:36:00 Sobia 32 [facility] Results Test Description Test Time Test Comments Results Result [facility] tono Comments - XR HAND 3 + V RT 2021-08-24 13:58:00 [facility] 1985 Sex: F FAX: Stephen Restrepo [phone] [place]: St: PRE Name: MADAN EVERETT [facility] : 1985 Age/S: 36/F [address] [facility], [place] Unit #: [id number] Loc: E.[address] [place] [address] Phys: Stephen Restrepo [id number] Acct: [id number] Dis Date: Status: PRE ER PHONE #: [phone] Exam Date: 08/24/2021 1355 FAX #: [phone] Reason: fall, left knee and right hand pain EXAMS: CPT CODE: [id number] XR HAND 3 + V RT [id number] EXAMINATION: - XR HAND 3 + V RT. LOCATION: H39. HISTORY: fall, left knee and right hand pain. COMPARISON: None. TECHNIQUE: AP, lateral, and oblique views of the right hand were obtained. FINDINGS: No acute fracture or dislocation is identified. Soft tissue structures appear within normal limits. IMPRESSION: No acute osseous abnormality is identified. at 0131 Reported and signed by: Daniel Fajardo M.D. CC: Stephen FISHER Technologist: STACI [facility]man [facility] Date/Time/By: 08/24/2021 (7120) : By: [email or web address] PAGE 1 Signed Report FAX: Stephen Restrepo [phone] [place]: St: PRE Name: MADAN EVERETT [facility] : 1985 Age/S: 36/F [address] [facility], [place] Unit #: [id number] Loc: [address] Phys: Stephen Restrepo [id number] Acct: [id number] Dis Date: Status: PRE ER PHONE #: [phone] Exam Date: 08/24/2021 1355 FAX #: [phone] Reason: fall, left knee and right hand pain EXAMS: CPT CODE: [id number] XR HAND 3 + V RT [id number] (Continued) Orig Print D/T: S: 08/24/2021 (1401) PAGE 2 Signed Report - XR KNEE 3 V LT 2021-08-24 13:57:00 [facility] : 1985 Sex: F FAX: Stephen Restrepo [phone] [place]: St: PRE Name: MADAN EVERETT [facility] : 1985 Age/S: 36/F [address] [facility] [employer] Unit #: [id number] Loc: [address] Phys: Stephen Restrepo [id number] Acct: [id number] Dis Date: Status: PRE ER PHONE #: [phone] Exam Date: 08/24/2021 1355 FAX #: [phone] Reason: fall, left knee and right hand pain EXAMS: CPT CODE: [id number] XR KNEE 3 [place] LT [id number] EXAMINATION: - XR KNEE 3 V LT. [...] FISHER Technologist: STACI Workman [facility] Date/Time/By: 08/24/2021 (5095) : By: [email or web address] PAGE 1 Signed Report FAX: Stephen Restrepo [phone] [place]: St: PRE Name: MADAN EVERETT [facility] : 1985 Age/S: 36/F [address] [place] [facility] Unit [facility]: [id number] Loc: E.ERS2 [place], [place] Phys: Stephen Restrepo [id number] Acct: [id number] Dis Date: Status: PRE ER PHONE #: [phone] Exam Date: 08/24/2021 [facility]5 FAX #: [phone] Reason: fall, left knee and right hand pain EXAMS: CPT CODE: [id number] XR KNEE 3 [place] [id number] (Continued) Orig Print D/T: S: 08/24/2021 (1400) PAGE 2 Signed Report
[2022-05-16 07:55] LABS: Absolute Lymphocytes (CBC) 2.5 K/uL (0.7-4.9); Hematocrit 41.9 % (36.0-45.0); Lymphocytes % 23.8 % (15.3-44.8); MCV 91.8 fL (80-100); MPV 8.7 fL (7.6-11.3); RBC Red Blood Cell Count 4.56 M/uL (3.86-4.86)
[2022-05-16 07:55] LABS: Urine Blood Negative (Negative); Urine Glucose Negative (Negative); Urine Protein Negative (Negative); Urine Specific Gravity >=1.030 (1.005-1.030); Urine pH 5.5 (5.0-7.0)
[2022-05-16 08:13] LABS: Albumin 3.4 g/dL (3.4-5.0); Bilirubin Total 0.3 mg/dL (0.2-1.0); Protein, Total 6.9 g/dL (6.4-8.2)
[2022-05-16] MEDS ORDERED: ONDANSETRON 4 MG/2 ML VIAL ONE (08:30)
[2022-05-16] MEDS ORDERED: KETOROLAC 30 MG/ML INJ ONE (08:30)
[2022-05-16] MEDS ORDERED: NA CHLORIDE 0.9% 500 ML ONE (08:38)
--- NOTE | 2022-05-16 09:10 | RAD REPORT ---
EXAM DESCRIPTION: CT - Stone Protocol - 05/16/2022 8:56 am CLINICAL HISTORY: Abdominal pain. Flank pain COMPARISON: 1999 TECHNIQUE: Computed axial tomography of the abdomen pelvis was obtained without oral or IV contrast. Lack of IV and oral contrast limits evaluation of solid organs, appendix, bowel, and vessels. Merrill l reformatted images were obtained and reviewed. All CT scans are performed using dose optimization technique as appropriate and may include automated exposure control or mA/KV adjustment according to patient size. FINDINGS: Tiny left renal calculi. No hydronephrosis. An ureteral calculus is not noted. A bladder c alculus is not present. 4.9 centimeter low-density mass left kidney. The liver, spleen, pancreas and adrenals appear grossly normal There is no evidence of diverticulitis. The appendix appears normal No adnexal mass. Cholecystectomy IMPRESSION: Tiny nonobstructing left renal calculi 4.9 centimeter low-density mass left kidney. This may represent a cyst. Nonemergent renal ultrasound recommended
--- NOTE | 2022-05-16 09:16 | EDPHYS ---
Physician Documentation [facility] Name: Lilliana Escobedo Age: 36 yrs Sex: Female : 1985 Arrival Date: 05/16/2022 Time: 07:[address] Private MD: ED Physician Phani Henriquez HPI: 05/16 08:18 This 36 yrs old Female presents to ER via Ambulatory with complaints of Low Back Pain, kdr Possible Kidney Stone. 08:18 Patient presents today complaining of low back pain that started yesterday. She states kdr that she felt like she had a kidney stone that she passed this morning. She continues to have mild low back pain. She denies a fever or any other acute injury or illness. Onset: The symptoms/episode began/occurred yesterday. Severity of symptoms: At their worst the symptoms were mild in the emergency department the symptoms are unchanged. The patient has experienced similar episodes in the past, a few times. The patient has not recently seen a physician. 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 - Social history:: Smoking status: Patient reports the use of cigarette tobacco products, smokes one pack cigarettes per day. ROS: 08:18 Constitutional: Negative for fever, chills, and weight loss, Eyes: Negative for injury, kdr pain, redness, and discharge, ENT: Negative for injury, pain, and discharge, Neck: Negative for injury, pain, and swelling, Cardiovascular: Negative for chest pain, palpitations, and edema, Respiratory: Negative for shortness of breath, cough, wheezing, and pleuritic chest pain, Abdomen/GI: Negative for abdominal pain, nausea, vomiting, diarrhea, and constipation, : Negative for injury, bleeding, discharge, and swelling, MS/Extremity: Negative for injury and deformity, Skin: Negative for injury, rash, and discoloration, Neuro: Negative for headache, weakness, numbness, tingling, and seizure activity. Psych: Negative for depression, anxiety, suicide ideation, homicidal ideation, and hallucinations, Allergy/Immunology: Negative for hives, rash, and allergies, Endocrine: Negative for neck swelling, polydipsia, polyuria, polyphagia, and marked weight changes, Hematologic/Lymphatic: Negative for swollen nodes, abnormal bleeding, and unusual bruising. 08:18 Back: Positive for pain at rest, radiated pain, of the low back area. 08:18 Abdomen/GI: Positive for nausea. kdr Exam: 08:18 Constitutional: This is a well developed, well nourished patient who is awake, alert, kdr and in no acute distress. Head/Face: Normocephalic, atraumatic. Eyes: Pupils equal round and reactive to light, extra-ocular motions intact. Lids and lashes normal. Conjunctiva and sclera are non-icteric and not injected. Cornea within normal limits. Periorbital areas with no swelling, redness, or edema. Neck: Trachea midline, no thyromegaly or masses palpated, and no cervical lymphadenopathy. Supple, full range of motion without nuchal rigidity, or vertebral point tenderness. No Meningismus. Chest/axilla: Normal chest wall appearance and motion. Nontender with no deformity. No lesions are appreciated. Cardiovascular: Regular rate and rhythm with a normal S1 and S2. No gallops, murmurs, or rubs. Normal PMI, no JVD. No pulse deficits. Respiratory: Lungs have equal breath sounds bilaterally, clear to auscultation and percussion. No rales, rhonchi or wheezes noted. No increased work of breathing, no retractions or nasal flaring. Back: No spinal tenderness. No costovertebral tenderness. Full range of motion. Skin: Warm, dry with normal turgor. Normal color with no rashes, no lesions, and no evidence of cellulitis. MS/ Extremity: Pulses equal, no cyanosis. Neurovascular intact. Full, normal range of motion. Neuro: Awake and alert, GCS 15, oriented to person, place, time, and situation. Cranial nerves II-XII grossly intact. Motor strength 5/5 in all extremities. Sensory grossly intact. Cerebellar exam normal. Normal gait. Psych: Awake, alert, with orientation to person, place and time. Behavior, mood, and affect are within normal limits. 09:53 ECG was reviewed by the Attending Physician. kdr Vital Signs: 07:42 BP 129 / 64; Pulse 62; Resp 18; Pulse Ox 100% ; Weight 108.86 kg; Height 5 ft. 9 in. ap3 (175.26 cm); Pain 5/10; 08:32 BP 113 / 65; Pulse 87; Resp 15; Pulse Ox 100% on R/A; vg1 10:22 Pulse 49; Pulse Ox 100% on R/A; ap3 10:45 BP 130 / 60; Pulse 59; Resp 14; Pulse Ox 98% on R/A; tp1 07:42 Body Mass Index 35.44 (108.86 kg, 175.26 cm) ap3 MDM: 08:18 Data reviewed: vital signs, nurses notes, lab test result(s), radiologic studies. kdr Counseling: I had a detailed discussion with the patient and/or guardian regarding: the historical points, exam findings, and any diagnostic results supporting the discharge/admit diagnosis, lab results, radiology results. 09:15 Patient medically screened. kdr 09:54 ED course: Patient was noted after arrival to have occasional episodes of sinus kdr bradycardia with a rate in the 40s. She denies that this is her normal rate. She has not had episodes like this before. She denies chest pain or shortness of breath. She has been and continues to ambulate in the department without issue. She has not symptomatic at this time. She has no other focal complaints and is otherwise feeling better.. 10:19 ED course: I spoke with Dr. Carrasco from cardiology with regard to the patient's kdr apparent new onset bradycardia. He indicated that as long as she was not symptomatic or had other reasons to be admitted she could be discharged with follow-up in his office.. 05/16 07:34 Order name: CBC with Diff; Complete Time: 08:15 kdr 05/16 07:34 Order name: CMP; Complete Time: 08:15 kdr 05/16 07:34 Order name: Lipase; Complete Time: 08:15 kdr 05/16 07:56 Order name: Urine Dipstick-Ancillary; Complete Time: 08:15 EDMS 05/16 07:59 Order name: Urine --Ancillary (enter results); Complete Time: 10:18 eb 05/16 07:34 Order name: IV Saline Lock; Complete Time: 07:47 kdr 05/16 07:34 Order name: Labs collected and sent; Complete Time: 07:47 kdr 05/16 07:34 Order name: Urine Dipstick-Ancillary (obtain specimen); Complete Time: 07:57 kdr 05/16 07:34 Order name: Urine Test (obtain specimen); Complete Time: 07:57 kdr 05/16 07:34 Order name: CT Stone Protocol; Complete Time: 09:11 kdr 05/16 09:20 Order name: EKG - Nurse/Tech; Complete Time: 09:52 kdr EC:53 Rate is 44 beats/min. Rhythm is regular, Sinus bradycardia with No ectopy. QRS [place] is kdr Normal. SC interval is normal. QRS interval is normal. Clinical impression: Sinus bradycardia. Administered Medications: 08:21 Drug: Zofran (Ondansetron) 4 mg Route: IVP; Site: right antecubital; vg1 09:53 Follow up: Response: No adverse reaction; Nausea is decreased ap3 08:23 Drug: Ketorolac 15 mg Route: IVP; Site: right antecubital; vg1 09:53 Follow up: Response: No adverse reaction; Pain is decreased ap3 08:31 Drug: NS 0.9% 500 ml Route: IV; Rate: bolus; Site: right antecubital; vg1 09:56 Follow up: Response: No adverse reaction; IV Status: Completed infusion ap3 Disposition Summary: 05/16/22 09:15 Discharge Ordered Location: Home kdr Problem: new kdr Symptoms: have improved kdr Condition: Stable kdr Diagnosis - Low back pain kdr - Kidney stones: non-obstructive, left; renal mass left kindey, likely a cyst kdr - Bradycardia, unspecified kdr Followup: kdr - With: Private Physician - When: 2 - 3 days - Reason: If symptoms return, Further diagnostic work-up, Recheck today's complaints, Continuance of care, Re-evaluation by your physician Discharge Instructions: - Discharge Summary Sheet kdr - Acute Back Pain, Adult kdr - Bradycardia, Adult kdr Forms: - Medication Reconciliation Form kdr - Thank You Letter kdr - Work release form tp1 Prescriptions: - Ibuprofen 600 mg Oral Tablet - take 1 tablet by ORAL route every 6 hours As needed take with food; 15 tablet; kdr Refills: 0, Product Selection Permitted Signatures: [facility]patcher [facility] Phani Deleon MD MD kdr Trcaey Issa RN RN ap3 Bairon, Leelee, RN RN vg1
--- NOTE | 2022-05-16 09:16 | ER ---
Nurse's Notes [facility] Name: Lilliana Escobedo Age: 36 yrs Sex: Female : 1985 Arrival Date: 05/16/2022 Time: 07:[address] Private MD: Diagnosis: Low back pain;Kidney stones: non-obstructive, left; renal mass left kindey, likely a cyst;Bradycardia, unspecified Presentation: 05/16 07:42 Chief complaint: Patient states: she started having low back pain yesterday and felt ap3 like she passed a kidney stone early this morning. patient states she still feels a dull lower back pain this morning so she came to the ED for further evaluation. Coronavirus screen: At this time, the client does not indicate any symptoms associated with coronavirus-19. Ebola Screen: No symptoms or risks identified at this time. Initial Sepsis Screen: Does the patient meet any 2 criteria? No. Patient's initial sepsis screen is negative. Does the patient have a suspected source of infection? No. Patient's initial sepsis screen is negative. Initial Sepsis Screen: Does the patient meet any 2 criteria?. Risk Assessment: Do you want to hurt yourself or someone else? Patient reports no desire to harm self or others. Onset of symptoms was May 15, 2022. 07:42 Method Of Arrival: Ambulatory ap3 07:42 Acuity: SELWYN 3 ap3 Triage Assessment: 07:44 General: Appears in no apparent distress. Behavior is calm, cooperative. Pain: ap3 Complains of pain in low back area Pain currently is 5 out of 10 on a pain scale. Neuro: Level of Consciousness is awake, alert, obeys commands, Oriented to person, place, time, situation, Speech is normal. Cardiovascular: Patient's skin is warm and dry. Respiratory: Airway is patent Respiratory effort is even, unlabored, Respiratory pattern is regular, symmetrical. GI: Reports nausea. : Reports pain in lower back. 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 - Social history:: Smoking status: Patient reports the use of cigarette tobacco products, smokes one pack cigarettes per day. Screenin:45 Abuse screen: Denies threats or abuse. Nutritional screening: No deficits noted. ap3 Tuberculosis screening: No symptoms or risk factors identified. Fall Risk None identified. Assessment: 08:32 Reassessment: Patient appears in no apparent distress at this time. No changes from vg1 previously documented assessment. Patient and/or family updated on plan of care and expected duration. Pain level reassessed. Patient is alert, oriented x 3, equal unlabored respirations, skin warm/dry/pink. 09:53 General: patients heart rate continued to fluctuate down into the 40's. EKG was ap3 completed and shown to provider. patient was then ambulated approx 50 yards. patient denies any nausea, dizziness or chest pain. patient states she feels like she is at her baseline. . Vital Signs: 07:42 BP 129 / 64; Pulse 62; Resp 18; Pulse Ox 100% ; Weight 108.86 kg; Height 5 ft. 9 in. ap3 (175.26 cm); Pain 5/10; 08:32 BP 113 / 65; Pulse 87; Resp 15; Pulse Ox 100% on R/A; vg1 10:22 Pulse 49; Pulse Ox 100% on R/A; ap3 10:45 BP 130 / 60; Pulse 59; Resp 14; Pulse Ox 98% on R/A; tp1 07:42 Body Mass Index 35.44 (108.86 kg, 175.26 cm) ap3 ED Course: 07:31 Patient arrived in ED. rg4 07:32 Phani Henriquez MD is Attending Physician. kdr 07:44 Triage completed. ap3 07:44 Initial lab(s) drawn, by de, sent to lab. Inserted saline lock: 20 gauge in right vg1 antecubital area, using aseptic technique. Blood collected. 07:45 Arm band placed on right wrist. ap3 07:45 Patient has correct armband on for positive identification. Bed in low position. Call ap3 light in reach. Side rails up X 1. Pulse ox on. NIBP on. 08:11 Tracey Issa, CESAR is Primary Nurse. ap3 08:58 CT Stone Protocol In Process Unspecified. EDMS 10:46 No provider procedures requiring assistance completed. IV discontinued, intact, tp1 bleeding controlled, No redness/swelling at site. Pressure dressing applied. Administered Medications: 08:21 Drug: Zofran (Ondansetron) 4 mg Route: IVP; Site: right antecubital; vg1 09:53 Follow up: Response: No adverse reaction; Nausea is decreased ap3 08:23 Drug: Ketorolac 15 mg Route: IVP; Site: right antecubital; vg1 09:53 Follow up: Response: No adverse reaction; Pain is decreased ap3 08:31 Drug: NS 0.9% 500 ml Route: IV; Rate: bolus; Site: right antecubital; vg1 09:56 Follow up: Response: No adverse reaction; IV Status: Completed infusion ap3 Medication: 09:55 VIS not applicable for this client. ap3 Outcome: 09:15 Discharge ordered by . kdr 10:48 Discharged to home ambulatory. tp1 10:48 Condition: good 10:48 Discharge instructions given to patient, Instructed on discharge instructions, follow up and referral plans. medication usage, Demonstrated understanding of instructions, follow-up care, medications. 10:49 Patient left the ED. tp1 Signatures: Dispatcher [employer] EDMS Phani Henriquez MD MD kdr Love Waddell rg4 Tracey Issa RN RN ap3 Leelee Waddell RN RN vg1 Carmelita Urena RN RN tp1
[2022-05-16 11:18] VITALS: BP 130/60; O2SAT 98
== END 2022-05-16 10:49 | disposition home or self-care (01) ==
LOC: ER 07:28
DX: N20.0 Calculus of kidney (principal); Z87.442 Personal history of urinary calculi; N28.89 Other specified disorders of kidney and ureter; R00.1 Bradycardia, unspecified; F17.210 Nicotine dependence, cigarettes, uncomplicated; Z88.0 Allergy status to penicillin
CPT/HCPCS: 36415; 74176; 76377; 80053; 81003; 81025; 83690; 85025; 96361; 96374; 96375; 99284; J2405; J7040